=== PATIENT | female | born 1970 | race African-American/Black ===

== ENCOUNTER 2017-11-22 18:49 | Emergency (ER) | payer OTHER ==
[2017-11-22 18:59] VITALS: TEMP 98; BMI 25.0
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
[2017-11-22] MEDS ORDERED: NITROGLYCERIN 2% OINTMENT - 1GM PACKET TD ONE ×2 (20:23→20:29)
[2017-11-22] MEDS ORDERED: NITROGLYCERIN SUBLINGUAL 1/150 0.4 MG TAB SL ONE (20:23)
[2017-11-22 20:26] VITALS: PULSE 64
[2017-11-22] MEDS ORDERED: NITROGLYCERIN SUBLINGUAL 1/150 0.4 MG TAB ONE (20:30)
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
[2017-11-22 21:14] LABS: BASO % 1.2 % (0-2.0); EOS % 2.5 % (0-4.5); HEMATOCRIT 31.9 % (32.4-45.2); HEMOGLOBIN 10.7 GM/dL (10.7-15.3); LYMPH % 20.6 % (8-40); MCH 27.2 pg (25.7-33.7); MCHC 33.5 g/dl (32.0-36.0); MEAN CELL VOLUME 81.2 fl (80-96); MEAN PLT VOLUME 9.5 fl (7.5-11.1); MONO % 9.4 % (3.8-10.2); NEUT % 66.3 % (42.8-82.8); PLATELET COUNT 208 K/MM3 (134-434); RBC 3.93 M/mm3 (3.60-5.2); RDW 19.2 % (11.6-15.6); WHITE BLOOD COUNT 7.7 K/mm3 (4.0-10.0)
[2017-11-22 21:45] LABS: ANION GAP 4 (8-16); BLOOD UREA NITROGEN 11 mg/dL (7-18); CALCIUM 8.4 mg/dL (8.5-10.1); CHLORIDE 108 mmol/L (98-107); CO2 28 mmol/L (21-32); CREATININE 0.8 mg/dL (0.55-1.02); GLUCOSE,RANDOM 73 mg/dL (74-106); POTASSIUM 3.9 mmol/L (3.5-5.1); SGOT/AST 24 U/L (15-37); SGPT/ALT 28 U/L (12-78); SODIUM 140 mmol/L (136-145)
[2017-11-22 21:49] LABS: ALK PHOS 101 U/L (45-117); BILIRUBIN,TOTAL 0.3 mg/dL (0.2-1.0); TOT PROT 7.6 g/dl (6.4-8.2)
[2017-11-23 00:29] VITALS: BP 143/85
--- NOTE | 2017-11-23 14:34 | EKG ---
Test Reason : Blood Pressure : / mmHG Vent. Rate : 059 BPM Atrial Rate : 059 BPM P-R Int : 176 ms QRS Dur : 078 ms QT Int : 452 ms P-R-T Axes : 066 009 076 degrees QTc Int : 447 ms SINUS BRADYCARDIA OTHERWISE NORMAL ECG WHEN COMPARED WITH ECG OF 16-APR-2013 18:09, NO SIGNIFICANT CHANGE WAS FOUND Confirmed by MD Jimenez Daniel ([id number]) on 11/23/2017 2:34:05 PM Referred By: Confirmed By:Leonardo Jimenez MD
== END 2017-11-23 01:35 | disposition home or self-care (01) ==
LOC: JER 18:49
DX: G44.309 Post-traumatic headache, unspecified, not intractable (principal); G44.89 Other headache syndrome; I10 Essential (primary) hypertension; V43.62XA Car passenger injured in collision with other type car in traffic accident, initial encounter; Y92.414 Local residential or business street as the place of occurrence of the external cause; Y93.89 Activity, other specified; Y99.8 Other external cause status
CPT/HCPCS: 36415; 70450-TC; 71046-TC-FY; 72050-TC-FY; 80053; 82550; 82553; 84484; 85025; 93005; 93010; 99283-25

== ENCOUNTER 2018-01-13 15:41 | Emergency (ER) | payer OTHER ==
--- NOTE | 2018-01-13 16:13 | PDOC ---
Rapid Medical Evaluation Time Seen by Provider: 01/13/18 16:09 Medical Evaluation: Allergies Allergy/AdvReac Type Severity Reaction Status Date / Time No Known Allergies Allergy Verified 08/12/15 17:54 01/13/18 16:09 I have performed a brief in-person evaluation of this patient. The patient presents with a chief complaint of: L sided neck pain and NULL since today Pertinent physical exam findings: + tenderness in SCM muscle on the left side, FROM in neck I have ordered the following:none The patient will proceed to the fast track for further evaluation.
[2018-01-13 16:15] VITALS: PULSE 91; TEMP 98; BMI 24.8
[2018-01-13 18:08] VITALS: BP 150/90
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
== END 2018-01-13 18:15 | disposition home or self-care (01) ==
LOC: JER 15:41 → JERFT 15:41
DX: J00 Acute nasopharyngitis [common cold] (principal); B97.89 Other viral agents as the cause of diseases classified elsewhere; I10 Essential (primary) hypertension
CPT/HCPCS: 99281-25

== ENCOUNTER 2018-06-29 11:53 | Emergency (ER) | payer OTHER ==
[2018-06-29 12:13] VITALS: BP 184/89; PULSE 63; TEMP 99; BMI 24.3
--- NOTE | 2018-06-29 13:43 | PDOC ---
History of Present Illness - General Chief Complaint: Toothache Stated Complaint: TOOTH PAIN Time Seen by Provider: 06/29/18 13:33 History Source: Patient Exam Limitations: No Limitations - History of Present Illness Initial Comments: 06/29/18 13:52 Patient came for complaints of right upper tooth pain. States cracked tooth approximately 2 weeks ago and did not have pain until 3 days ago when had onset of throbbing which is progressively worsened. Has been using ibuprofen/Aleve and Tylenol with minimal resolved. Denies fever, denies swelling to face or inner gingival surface. But has facial pain which is radiating to her ear now Past History - Travel Traveled outside of the country in the last 30 days: No Close contact w/someone who was outside of country & ill: No - Past Medical History Allergies/Adverse Reactions: Allergies Allergy/AdvReac Type Severity Reaction Status Date / Time No Known Allergies Allergy Verified 06/29/18 12:12 Home Medications: Ambulatory Orders Enalapril Maleate [Vasotec -] 10 mg PO DAILY 11/22/17 Amoxicillin - [Amoxicillin 500mg Capsule -] 500 mg PO TID #21 capsule 06/29/18 Oxycodone HCl/Acetaminophen [Percocet 5-325 mg Tablet -] 1 - 2 tab PO Q4H PRN # 7 tablet MDD 4 06/29/18 COPD: No HTN: Yes - Suicide/Smoking/Psychosocial Hx Smoking Status: No Smoking History: Never smoked Have you smoked in the past 12 months: No Number of Cigarettes Smoked Daily: 0 Hx Alcohol Use: No Drug/Substance Use Hx: No Substance Use Type: None Review of Systems - Review of Systems Able to Perform ROS?: Yes Is the patient limited Hungarian proficient: Yes Constitutional: Yes: Symptoms Reported, See HPI, Malaise. No: Fever HEENTM: Yes: Symptoms Reported, See HPI, Mouth Pain, Dental Problems, Mouth Swelling Respiratory: Yes: See HPI. No: Symptoms reported, Cough Integumentary: No: Symptoms Reported Neurological: No: Symptoms reported All Other Systems: Reviewed and Negative *Physical Exam - Vital Signs Last Vital Signs Temp Pulse Resp BP Pulse Ox 99.0 F 63 16 184/89 H 98 06/29/18 12:10 06/29/18 12:10 06/29/18 12:10 06/29/18 12:10 12/09/18 12:10 - Physical Exam General Appearance: Yes: Nourished, Appropriately Dressed, Apparent Distress, Moderate Distress HEENT: positive: JHOANA, TMs Normal, Pharynx Normal, Other. negative: Normal ENT Inspection Neck: positive: Supple, Lymphadenopathy (R), Lymphadenopathy (L). negative: Tender Respiratory/Chest: positive: Lungs Clear, Normal Breath Sounds Cardiovascular: positive: Regular Rhythm Gastrointestinal/Abdominal: positive: Tender, Soft Musculoskeletal: positive: Normal Inspection Extremity: positive: Normal Capillary Refill, Normal Inspection Integumentary: positive: Normal Color, Dry, Warm, Pale Neurologic: positive: vascular ultrasound technician II-XII NML intact, Fully Oriented, Alert, Normal Mood/ Affect, Normal Response, Motor Strength 5/5 Moderate Sedation - Procedure Monitoring Vital Signs: Procedure Monitoring Vital Signs Temperature 99.0 F 06/29/18 12:10 Pulse Rate 63 06/29/18 12:10 Respiratory Rate 16 06/29/18 12:10 Blood Pressure 184/89 H 06/29/18 12:10 O2 Sat by Pulse Oximetry (%) 98 06/29/18 12:10 *DC/Admit/Observation/Transfer Diagnosis at time of Disposition: Tooth ache - Discharge Dispostion Disposition: HOME Condition at time of disposition: Stable Decision to Admit order: No - Prescriptions Prescriptions: Amoxicillin - [Amoxicillin 500mg Capsule -] 500 mg PO TID #21 capsule Oxycodone HCl/Acetaminophen [Percocet 5-325 mg Tablet -] 1 - 2 tab PO Q4H PRN # 7 tablet MDD 4 PRN Reason: Pain - Referrals Referrals: Leena Kumar MD [Primary Care Provider] - - Patient Instructions Printed Discharge Instructions: DI for Dental Pain Additional Instructions: Rest, drink lots of fluids: Teas, water, soups Saltwater gargles/ keep mouth clean and rinse after each meal May use wet teabag for pain relief to area Avoid hard chewing foods, stick to ice cream, Jell-O, yogurt etc. Tylenol or Motrin for fever and pain Complete all medication as prescribed Seek dental appointment as soon as possible for evaluation of dental injury/pain Followup with private physician in one to 2 days as needed Return to emergency department for worsened symptoms, fevers, swelling to face or worsened pain You may try : [facility] [address] [place] [address] [phone] - Post Discharge Activity Forms/Work/School Notes: Back to Work
== END 2018-06-29 13:58 | disposition home or self-care (01) ==
LOC: JERFT 11:53
DX: K08.89 Other specified disorders of teeth and supporting structures (principal)
CPT/HCPCS: 99281-25

== ENCOUNTER 2020-04-16 20:02 | Inpatient (IN) | payer OTHER ==
[2020-04-16 20:08] VITALS: BMI 24.7
--- OUTSIDE RECORDS SUMMARY | 2020-04-16 20:21 | XMS ---
:1970 Author Organization [facility] Support Name Relationship Address Phone UE Unavailable Unavailable Unavailable [facility] Unavailable [facility] [place] [phone] [place] [address] [facility] [place] [address] [place] [address] Re-disclosure Warning The records that you are about to access may contain information from federally- assisted alcohol or drug abuse programs. If such information is present, then the following federally mandated warning applies: This information has been disclosed to you from records protected by federal confidentiality rules (42 CFR part 2). The federal rules prohibit you from making any further disclosure of this information unless further disclosure is expressly permitted by the written consent of the person to whom it pertains or as otherwise permitted by 42 CFR part 2. A general authorization for the release of medical or other information is NOT sufficient for this purpose. The Federal rules restrict any use of the information to criminally investigate or prosecute any alcohol or drug abuse patient.The records that you are about to access may contain highly sensitive health information, the redisclosure of which is protected by Article 27-F of the [facility] Public Health law. If you continue you may haveaccess to information: Regarding HIV / AIDS; Provided by facilities licensed or operated by the [facility] Office of Mental Health; or Provided by the [facility] Office for People With Developmental Disabilities. If such information is present, then the following [facility] mandated warning applies: This information has been disclosed to you from confidential records which are protected by state law. State law prohibits you from making any further disclosure of this information without the specific written consent of the person to whom it pertains, or as otherwise permitted by law. Any unauthorized further disclosure in violation of state law may result in a fine or care home sentence or both. A general authorization for the release of medical or other information is NOT sufficient authorization for further disclosure. Insurance Providers Payer name Policy type Policy ID Covered Covered libertarian's Policy P cris / Coverage libertarian ID relationship to Red Inf ormation type red [facility] MEDICAID [id number] O
--- NOTE | 2020-04-16 20:42 | PDOC ---
History of Present Illness - General Chief Complaint: Edema Stated Complaint: BILATERAL SWELLING- FEET AND PAIN Time Seen by Provider: 04/16/20 20:42 Past History - Medical History Allergies/Adverse Reactions: Allergies Allergy/AdvReac Type Severity Reaction Status Date / Time No Known Allergies Allergy Verified 04/18/20 12:10 Home Medications: Ambulatory Orders Enalapril/Hydrochlorothiazide [Vaseretic 10-25 mg Tablet] 1 each PO DAILY 5 Days #5 tablet 04/16/20 Acetaminophen [Tylenol .Regular Strength -] 650 mg PO Q4H PRN tablet 04/18/20 Enalapril Maleate [Vasotec -] 20 mg PO DAILY 30 Days #30 tablet 04/18/20 Hydrochlorothiazide [Hctz -] 25 mg PO DAILY 30 Days #30 tablet 04/18/20 Nifedipine ER [Procardia XL -] 30 mg PO DAILY 30 Days #30 tab.er.24 04/18/20 COPD: No HTN: Yes - Reproductive History Is Patient Now?: No - Psycho-Social/Smoking History Smoking Status: No Smoking History: Never smoked Have you smoked in the past 12 months: No Number of Cigarettes Smoked Daily: 0 - Substance Abuse Hx (Audit-C & DAST Scrn) How often the patient has a drink containing alcohol: Never Score: In Men: 4 or > Positive; In Women: 3 or > Positive: 0 Screen Result (Pos requires Nsg. Audit-10AR): Negative In the last yr the pt used illegal drug/Rx for NonMed reason: No Score: Yes response is considered Positive: 0 Screen Result (Positive result requires Nsg. DAST-10): Negative *Physical Exam - Vital Signs Last Vital Signs Temp Pulse Resp BP Pulse Ox 98.3 F 81 18 213/84 H 99 04/16/20 20:05 04/16/20 20:05 04/16/20 20:05 04/16/20 20:05 04/16/20 20:05 ED Treatment Course - LABORATORY CBC & Chemistry Diagram: 04/18/20 05:50 04/18/20 05:50 Medical Decision Making - Medical Decision Making 04/16/20 21:12 HPI: 49yo F HTN, anemia 2/2 menses (noncompliant with iron due to AE), and partial thyroidectomy presents from home c/o BLE swelling x4 days. Pt takes 20 enalipril daily, unknown HCTZ daily - accidentally threw out 2-3 weeks ago so hasn't taken. Endorses BLE swelling since Saturday, similar to prior episodes when was poorly compliant with meds, worse when drives for 1-2 hours. Endorses mild SOB when walks up stairs x3 days, which pt has experienced intermittently x years. Denies chest pain, lightheadedness, diaphoresis. LMP ended yesterday. Denies N/T, weakness, unilateral swelling, hx DVT/PE, OCP or hormone use, recent surgery, recent travel or long road/plane rides, malignancy, hemoptysis, cough, chest pain, N/V, abdominal pain, F/C. ROS: Constitutional: Negative for chills, fever, fatigue, diaphoresis. HENT: Negative for sore throat, rhinorrhea, congestion. Eyes: Negative for visual disturbance. Respiratory: Positive for MUÑIZ. Negative for cough, and wheezing. Cardiovascular: Positive for BLE swelling. Negative for chest pain, palpitations . Gastrointestinal: Negative for abdominal pain, blood in stool, constipation, diarrhea, nausea, and vomiting. Genitourinary: Negative for dysuria, flank pain, and hematuria. Musculoskeletal: Negative for myalgias, back pain, and neck pain. Skin: Negative for rash. Neurological: Negative for light-headedness, dizziness, vertigo, syncope, weakness, numbness and headaches. Psychiatric/Behavioral: Negative for behavioral problems and confusion. PE: Gen: Alert, NAD, comfortable-appearing. HEENT: PERRL, EOMI, MMM, NCAT. No conjunctival pallor. Sclera are non-icteric. Oropharynx is clear. CV: Regular rate and rhythm. No murmurs, rubs, or gallops. PULM: No resp distress. CTAB, no wheezes, rales, or rhonchi. ABD: soft, NT/ND, no rebound tenderness or guarding, no CVA tenderness. BACK: No TTP of c/t/l-spine. No step-offs or deformities. MSK: No bony deformities. 2+ pulses in all extremities. NEURO: AAOx3. PERRL. CN 2-12 intact. 5/5 strength in all extremities. Sensation to light touch intact in all extremities. No abnormal nystagmus. Normal gait. EXTREMITIES: No cyanosis. No clubbing. 1+ edema BLEs. No calf tenderness. PSYCH: Normal mood and thought pattern. SKIN: Warm and dry. Normal capillary refill. No rashes. No jaundice. MDM: 49yo F HTN, anemia 2/2 menses (noncompliant with iron due to AE), and partial thyroidectomy presents from home with BLE swelling x4 days, noncompliant with home meds x2-3 weeks, and MUÑIZ x3 days (intermittent x years). Hypertensive, otherwise hemodynamically stable, afebrile, neurologically intact. Ddx: dependent edema, CHF, HTN emergency, DVT, ACS/OR, arrhythmia, thyroid abnormality, infection, metabolic derangement, anemia -Home meds -EKG: changes from prior -CXR: no acute pathology -CBC,CMP,BNP,Trop,TSH,UA -Duplex BLEs -Admit for EKG changes Labs reviewed. Notable for BNP 675 and Hb 6.3 Anemic Hb 6.3 (baseline 7-8), likely 2/2 menses which just ended yesterday. Mild SOB with exertion but otherwise asymptomatic. -iron studies -repeat H/H -observe Discharge - Discharge Information Problems reviewed: Yes Clinical Impression/Diagnosis: Leg swelling, Anemia, Hypertension, Acute electrocardiogram changes, Elevated brain natriuretic peptide (BNP) level Condition: Stable Disposition: HOME - Admission Yes - Additional Discharge Information - Follow up/Referral - Patient Discharge Instructions - Post Discharge Activity
--- NOTE | 2020-04-16 20:47 | PDOC ---
Attending Attestation - Resident Resident Name: Debbie Gallego - ED Attending Attestation I have performed the following: I have examined & evaluated the patient, The case was reviewed & discussed with the resident, I agree w/resident's findings & plan - HPI HPI: 04/16/20 22:12 Pt hasn't taken her meds in several weeks. She was visiting [place] and she thinks someone in the hotel tossed her HTN meds. She never refilled them,. She eats a lot of junk food and she works nights and has a bad diet and stress. BP was 220 in the ER on arrival. Pt has pitting edema bilat. She has had this in the past only when she goes on ling drives. This has been going on for a couple days despite no long drives. - Physicial Exam PE: 04/16/20 22:21 Heart RRR Lungs CTAB abd soft NT ND pt looks younger than stated age Pt has pitting edema right lef >> left leg and 2+ pitting up to knees - Medical Decision Making 04/16/20 22:16 New EKG changes; lateral T waves flipped. 04/16/20 22:56 Hb is 6.3 normal is 7-8 for patient; pt's Hb is 10 when she is compliant with her iron supplementation. 04/17/20 01:00 Patient Name: LEN HERNANDEZ THIS IS A PRELIMINARY REPORT DATE OF SERVICE: 2020-04-16 23:50:10 IMAGES: 42 EXAM: DUPLEX VASCULAR US-2 LEGS HISTORY: Bilateral leg swelling COMPARISON: None. FINDINGS: There is no DVT in the right or left lower extremity. IMPRESSION: No DVT 04/17/20 01:00 trop normal; BNP slight elevation. BUN/Cr normal 04/17/20 01:01 PT ADMITTED TO MED SURG Discharge - Discharge Information Problems reviewed: Yes Clinical Impression/Diagnosis: Leg swelling, Anemia, Hypertension, Acute electrocardiogram changes, Elevated brain natriuretic peptide (BNP) level Condition: Stable - Additional Discharge Information - Follow up/Referral - Patient Discharge Instructions - Post Discharge Activity
[2020-04-16] MEDS ORDERED: ENALAPRIL MALEATE 10 MG TABLET PO ONE (21:33)
[2020-04-16] MEDS ORDERED: HYDROCHLOROTHIAZIDE 25 MG TABLET (FP) PO ONE (21:33)
[2020-04-16] MEDS ORDERED: ENALAPRIL MALEATE 5 MG TABLET ONE (21:48)
[2020-04-16] MEDS ORDERED: HYDROCHLOROTHIAZIDE 25 MG TABLET (FP) ONE (21:48)
[2020-04-16] MEDS ORDERED: NITROGLYCERIN SUBLINGUAL 1/150 0.4 MG TAB SL ONE (22:00)
[2020-04-16] MEDS ORDERED: ACETAMINOPHEN 1000 MG/100 ML VIAL (NON FORMULARY) IVPB ONE (22:15)
[2020-04-16 22:18] LABS: BASO % 2.5 % (0-2.0); EOS % 3.3 % (0-4.5); HEMATOCRIT 20.2 % (32.4-45.2); LYMPH % 31.4 % (8-40); MCH 20.9 pg (25.7-33.7); MEAN CELL VOLUME 67.7 fl (80-96); MEAN PLT VOLUME 8.9 fl (7.5-11.1); MONO % 9.9 % (3.8-10.2); NEUT % 52.9 % (42.8-82.8); PLATELET COUNT 310 K/MM3 (134-434); RBC 2.99 M/mm3 (3.60-5.2); RDW 23.4 % (11.6-15.6); WHITE BLOOD COUNT 6.2 K/mm3 (4.0-10.0)
[2020-04-16] MEDS ORDERED: ACETAMINOPHEN INJECTION 100 ML IVPB ONE (22:26)
[2020-04-16 22:28] LABS: HEMOGLOBIN 6.3 GM/dL (10.7-15.3)
[2020-04-16 22:55] LABS: BASO % 3.8 % (0-2.0); EOS % 2.6 % (0-4.5); HEMATOCRIT 20.6 % (32.4-45.2); LYMPH % 31.5 % (8-40); MCHC 30.6 g/dl (32.0-36.0); MEAN CELL VOLUME 68.6 fl (80-96); MEAN PLT VOLUME 9.6 fl (7.5-11.1); MONO % 9.1 % (3.8-10.2); PH,URINE 7.5 (5.0-8.0); PLATELET COUNT 295 K/MM3 (134-434); RDW 22.9 % (11.6-15.6); URINE APPEARANCE CLEAR; URINE BILIRUBIN NEGATIVE (NEGATIVE); URINE COLOR YELLOW; URINE GLUCOSE (UA) NEGATIVE (NEGATIVE); URINE KETONE NEGATIVE (NEGATIVE); URINE LEUK ESTERASE NEGATIVE (NEGATIVE); URINE NITRITE NEGATIVE (NEGATIVE); URINE PROTEIN NEGATIVE (NEGATIVE); URINE UROBILINOGEN 0.2 mg/dL (0.2-1.0); WHITE BLOOD COUNT 5.5 K/mm3 (4.0-10.0)
[2020-04-16 23:02] LABS: HEMOGLOBIN 6.3 GM/dL (10.7-15.3)
[2020-04-16 23:03] LABS: ALBUMIN 3.5 g/dl (3.4-5.0); ALK PHOS 143 U/L (45-117); ANION GAP 4 MMOL/L (8-16); BILIRUBIN,TOTAL 0.2 mg/dL (0.2-1); BLOOD UREA NITROGEN 15.2 mg/dL (7-18); CALCIUM 8.5 mg/dL (8.5-10.1); CHLORIDE 108 mmol/L (98-107); CO2 28 mmol/L (21-32); CREATININE 0.8 mg/dL (0.55-1.3); GLUCOSE,RANDOM 96 mg/dL (74-106); N-TERMINAL BNP 674.9 pg/ml (5-125); POTASSIUM 3.8 mmol/L (3.5-5.1); SGOT/AST 26 U/L (15-37); SGPT/ALT 26 U/L (13-61); SODIUM 139 mmol/L (136-145); TOT PROT 7.3 g/dl (6.4-8.2)
[2020-04-17 00:02] LABS: INR 1.08 (0.83-1.09); PROTHROMBIN TIME (PATIENT) 12.8 SEC (9.7-13.0)
[2020-04-17 00:05] LABS: ACTIVATED PTT 30.2 SECONDS (25.2-36.5)
--- NOTE | 2020-04-17 00:08 | HP ---
Admitting History and Physical - Primary Care Physician PCP: Leena Kumar - Admission Chief Complaint: Bilateral Lower Extremity Edema History of Present Illness: This is a 49 y/o female with a PMHx of HTN (non-compliant Enalapril, HCTZ), Anemia (non-compliant with iron supplements), Goiter s/p partial thyroidectomy. Who presents to the ED for bilateral lower extremity swelling x4 days. Patient also reports SOB on exertion x3 days and heavy menses lasting 7 days. Patient reports not taking her antihypertensive meds x 3 weeks due to accidentally throwing them out. Patient reports that the bilateral LE swelling is similar to prior episodes when she was poorly compliant with her medications or when when driving for 1-2 hours. she reports her menstrual cycle ended yesterday. Patient denies fever, chills, cough, NULL, blurred vision, CP, palpitations, AP, N/V/D, melena, hematochezia, hematuria, dysuria. Patient denies recent sick contacts or travel. History Source: Patient Limitations to Obtaining History: No Limitations - Past Medical History Cardiovascular: Yes: HTN Gastrointestinal: Yes: Constipation ...LMP: 04/13/20 ...: No Heme/Onc: Yes: Anemia - Past Surgical History Past Surgical History: Yes: Additional Past Surgical History: Partial Thyroidectomy - Smoking History Smoking history: Never smoked Have you smoked in the past 12 months: No Aproximately how many cigarettes per day: 0 - Alcohol/Substance Use Hx Alcohol Use: No History of Substance Use: reports: None - Social History Usual Living Arrangement: Yes: Other (family) ADL: Independent Occupation: employed part-time History of Recent Travel: No Home Medications - Allergies Allergies/Adverse Reactions: Allergies Allergy/AdvReac Type Severity Reaction Status Date / Time No Known Allergies Allergy Verified 04/16/20 20:08 - Home Medications Home Medications: Ambulatory Orders Enalapril/Hydrochlorothiazide [Vaseretic 10-25 mg Tablet] 1 each PO DAILY 5 Days #5 tablet 04/16/20 Family Medical History Family History: As Documented Family Hx Cancer: Grandfather (maternal) Family Hx Congestive Heart Failure: Grandmother (maternal), Mother Family Hx Diabetes: Grandmother (maternal), Grandfather (paternal) Other Family History: Cancer- Maternal Great Aunt Review of Systems - Review of Systems Constitutional: reports: No Symptoms Eyes: reports: No Symptoms HENT: reports: No Symptoms Neck: reports: No Symptoms Cardiovascular: reports: Edema, Shortness of Breath Respiratory: reports: SOB on Exertion Gastrointestinal: reports: No Symptoms Genitourinary: reports: No Symptoms Breasts: reports: No Symptoms Reported Musculoskeletal: reports: No Symptoms Integumentary: reports: No Symptoms Neurological: reports: No Symptoms Endocrine: reports: No Symptoms Hematology/Lymphatic: reports: No Symptoms Psychiatric: reports: No Symptoms Pain Intensity: 0 Physical Examination Vital Signs: Vital Signs Temperature 98.3 F 04/16/20 20:05 Pulse Rate 60 04/16/20 23:10 Respiratory Rate 18 04/16/20 23:10 Blood Pressure 196/97 H 04/16/20 23:10 O2 Sat by Pulse Oximetry (%) 100 04/16/20 23:10 Constitutional: Yes: No Distress, Calm, Thin Eyes: Yes: Conjunctiva Clear (pale), EOM Intact, PERRL HENT: Yes: Atraumatic, Normocephalic Neck: Yes: Supple, Trachea Midline Cardiovascular: Yes: Regular Rate and Rhythm, S1, S2 Respiratory: Yes: WNL, Regular, CTA Bilaterally Gastrointestinal: Yes: Normal Bowel Sounds, Soft ...Rectal Exam: Yes: Deferred Renal/: Yes: WNL Breast(s): Yes: WNL Musculoskeletal: Yes: WNL Extremities: Yes: WNL Edema: Yes Edema: LLE: 2+, RLE: 1+ Peripheral Pulses WNL: Yes Integumentary: Yes: WNL Neurological: Yes: WNL, Alert, Oriented, Cran Nerves II-XII Intact. No: Unsteady Gait ...Motor Strength: WNL Psychiatric: Yes: WNL, Alert, Oriented Labs: CBC, BMP 04/16/20 10:45 04/16/20 10:06 Laboratory Results - last 24 hr 04/16/20 04/16/20 04/16/20 10:06 10:06 10:06 WBC 6.2 RBC 2.99 L Hgb 6.3 L* Hct 20.2 L MCV 67.7 L MCH 20.9 L MCHC 31.0 L RDW 23.4 H Plt Count 310 MPV 8.9 D Absolute Neuts (auto) 3.3 Neutrophils % 52.9 Lymphocytes % 31.4 Monocytes % 9.9 Eosinophils % 3.3 Basophils % 2.5 H Nucleated RBC % 0 Hypochromia 2+ Microcytosis 1+ PT with INR INR PTT (Actin FS) Sodium 139 Potassium 3.8 Chloride 108 H Carbon Dioxide 28 Anion Gap 4 L BUN 15.2 Creatinine 0.8 Est GFR (CKD-EPI)AfAm 99.63 Est GFR (CKD-EPI)NonAf 85.96 Random Glucose 96 Calcium 8.5 Iron 30 L TIBC 398 Iron Saturation 7 L Unsaturated IBC 368 H Ferritin 4.7 L Total Bilirubin 0.2 AST 26 ALT 26 Alkaline Phosphatase 143 H Troponin I < 0.02 B-Natriuretic Peptide 674.9 H Total Protein 7.3 Albumin 3.5 TSH 2.22 Urine Color Urine Appearance Urine pH Ur Specific [place] Urine Protein Urine Glucose (UA) Urine Ketones Urine Blood Urine Nitrite Urine Bilirubin Urine Urobilinogen Ur Leukocyte Esterase Blood Type Antibody Screen Crossmatch 04/16/20 04/16/20 04/16/20 10:45 10:45 10:45 WBC 5.5 RBC 3.00 L Hgb 6.3 L* Hct 20.6 L MCV 68.6 L MCH 21.0 L MCHC 30.6 L RDW 22.9 H Plt Count 295 MPV 9.6 Absolute Neuts (auto) 2.9 Neutrophils % 53.0 Lymphocytes % 31.5 Monocytes % 9.1 Eosinophils % 2.6 Basophils % 3.8 H Nucleated RBC % 0 Hypochromia Microcytosis PT with INR INR PTT (Actin FS) Sodium Potassium Chloride Carbon Dioxide Anion Gap BUN Creatinine Est GFR (CKD-EPI)AfAm Est GFR (CKD-EPI)NonAf Random Glucose Calcium Iron TIBC Iron Saturation Unsaturated IBC Ferritin Total Bilirubin AST ALT Alkaline Phosphatase Troponin I B-Natriuretic Peptide Total Protein Albumin TSH Urine Color Yellow Urine Appearance Clear Urine pH 7.5 D Ur Specific [place] 1.007 L Urine Protein Negative Urine Glucose (UA) Negative Urine Ketones Negative Urine Blood Negative Urine Nitrite Negative Urine Bilirubin Negative Urine Urobilinogen 0.2 Ur Leukocyte Esterase Negative Blood Type O POSITIVE Antibody Screen Negative Crossmatch See Detail 04/16/20 23:08 WBC RBC Hgb Hct MCV MCH MCHC RDW Plt Count MPV Absolute Neuts (auto) Neutrophils % Lymphocytes % Monocytes % Eosinophils % Basophils % Nucleated RBC % Hypochromia Microcytosis PT with INR 12.80 INR 1.08 PTT (Actin FS) 30.2 Sodium Potassium Chloride Carbon Dioxide Anion Gap BUN Creatinine Est GFR (CKD-EPI)AfAm Est GFR (CKD-EPI)NonAf Random Glucose Calcium Iron TIBC Iron Saturation Unsaturated IBC Ferritin Total Bilirubin AST ALT Alkaline Phosphatase Troponin I B-Natriuretic Peptide Total Protein Albumin TSH Urine Color Urine Appearance Urine pH Ur Specific [place] Urine Protein Urine Glucose (UA) Urine Ketones Urine Blood Urine Nitrite Urine Bilirubin Urine Urobilinogen Ur Leukocyte Esterase Blood Type Antibody Screen Crossmatch Intake & Output 04/14/20 04/15/20 04/16/20 04/17/20 23:59 23:59 23:59 23:59 Intake Total 100 Balance 100 Weight 69.4 kg Radiology Reports: THIS IS A PRELIMINARY REPORT DATE OF SERVICE: 2020-04-16 23:50:10 IMAGES: 42 EXAM: DUPLEX VASCULAR US-2 LEGS HISTORY: Bilateral leg swelling COMPARISON: None. FINDINGS: There is no DVT in the right or left lower extremity. IMPRESSION: No DVT 04/17/20 01:00 Imaging - Results Chest X-ray: Image Reviewed Ultrasound: Report Reviewed, Image Reviewed EKG: Image Reviewed Problem List - Problems (1) Hypertensive urgency Assessment/Plan: Likely secondary to non-compliance Vasotec, HCTZ, Nitro Paste given in ED Will resume Vasotec, HCTZ Cardiac monitoring Serial Enzymes EKG reviewed- TWI noted Appreciate Cardiology consult Renal US r/o ATIF Monitor CBC, CMP Code(s): I16.0 - HYPERTENSIVE URGENCY (2) Acute electrocardiogram changes Assessment/Plan: EKG - NSR, TWI change compared to prior study Troponin neg, continue to trend Continue cardiac monitoring Appreciate Cardiology consult Chest Xray image reviewed- no pleural effusion, no infiltrate Monitor CMP Code(s): R94.31 - ABNORMAL ELECTROCARDIOGRAM [ECG] [EKG] (3) Symptomatic anemia Assessment/Plan: Likely secondary to non-compliance Hgb 6.3 Hx Menorrhagia PRBCs ordered FE, TIBC, Ferritin-pending Repeat CBC in am Cardiac monitoring O2 Consider Hematology consult Resume Iron supplements Stool Occult Code(s): D64.9 - ANEMIA, UNSPECIFIED (4) Leg swelling Assessment/Plan: Likely secondary to Uncontrolled HTN vs DVT vs CHF Wells Score 1, moderate risk Duplex b/l LE- neg DVT BNP 674 HCTZ given in ED, will continue Strict INOs Daily weight Chest Xray image, no effusion, no infiltrate Elevate extremities Appreciate Cardiology consult Monitor CMP Code(s): M79.89 - OTHER SPECIFIED SOFT TISSUE DISORDERS (5) Encounter for screening laboratory testing for COVID-19 virus Assessment/Plan: Low Risk COVID PCR-pending Isolation Precautions Code(s): Z11.59 - ENCOUNTER FOR SCREENING FOR OTHER VIRAL DISEASES Assessment/Plan This is a 49 y/o female with a PMHx of HTN (non-compliant with Enalapril, HCTZ), Anemia (noncompliant with iron supplements), Goiter s/p partial thyroidectomy. Admitted to Telemetry for Hypertensive Urgency, EKG Changes, Symptomatic Anemia for further evaluation of their emergent condition. Plan: See Problem List FEN PO fluids as tolerated Replete lytes prn Low Na Diet DVT ppx OOB SCDs Hold AC secondary to Anemia Code Status: Full Code Dispo: Requires Inpatient Care Visit type - Emergency Visit Emergency Visit: Yes ED Registration Date: 04/16/20 Care time: The patient presented to the Emergency Department on the above date and was hospitalized for further evaluation of their emergent condition. - New Patient This patient is new to me today: Yes Date on this admission: 04/17/20 - Critical Care Critical Care patient: No
--- OUTSIDE RECORDS SUMMARY | 2020-04-17 00:21 | XMS ---
:1970 Author Organization [facility] Support Name Relationship Address Phone UE, UNEMPLOYED Unavailable Unavailable Unavailable UE Unavailable Unavailable Unavailable [facility] Unavailable [place] [address] [facility] [place] [address] [place] [address] Re-disclosure Warning The records that you are [...] is protected by Article 27-F of the [facility] Public Health law. If you continue you may haveaccess to information: Regarding HIV / AIDS; Provided by facilities licensed or operated by the [facility] Office of Mental Health; or Provided by the [facility] Office for People With Developmental Disabilities. If such information is present, then the following [facility] mandated warning applies: This information has been [...] law may result in a fine or fci sentence or both. A general authorization for the release of medical or other information is NOT sufficient authorization for further disclosure. Insurance Providers Payer name Policy type Policy ID Covered Covered republican's Policy P cris / Coverage republican ID relationship to Red Inf ormation type red [facility] MEDICAID [id number] O
--- NOTE | 2020-04-17 07:04 | CON.CARD ---
Consult Consult Specialty:: Cardiology Referred by:: Dr. Schilling Reason for Consultation:: Hypertensive urgency, abnl ECG - History of Present Illness Chief Complaint: LE edema History of Present Illness: This is a 49 y/o female with a PMHx of HTN (non-compliant Enalapril, HCTZ), Anemia (non-compliant with iron supplements), Goiter s/p partial thyroidectomy. Who presents to the ED for bilateral lower extremity swelling x4 days. Patient also reports SOB on exertion x3 days and heavy menses lasting 7 days. Patient reports not taking her antihypertensive meds x 3 weeks due to accidentally throwing them out. She reports her menstrual cycle ended yesterday. Patient denies fever, chills, cough, NULL, blurred vision, CP, palpitations, AP, N/V/D, melena, hematochezia, hematuria, dysuria. Patient denies recent sick contacts or travel. BNP initiall >200/100; received Enalapril and HCTZ in ER. We are asked to see for hypertension. She is receiving PRBCs. History Source: Patient Limitations to Obtaining History: No Limitations - Past Medical History Cardiovascular: Yes: HTN Gastrointestinal: Yes: Constipation ...LMP: 04/13/20 ...: No Heme/Onc: Yes: Anemia - Past Surgical History Past Surgical History: Yes: Additional Past Surgical History: - History Source History Provided By: Patient, Medical Record - Past Medical History CHROMOSOMAL DISORDERS COUNSELOR: No: Alzheimer's, CVA, Dementia, Migraine, Multiple Sclerosis, Peripheral Neuropathy, Parkinson's, Seizure, Syncope, TIA, Vertigo, Other Cardio/Vascular: Yes: HTN Pulmonary: No: Asthma, Bronchitis, Cancer, COPD, O2 Dependent, Pneumonia, Previously Intubated, Pulmonary Embolus, Pulmonary Fibrosis, Sleep Apnea, Other Gastrointestinal: Yes: Constipation Hepatobiliary: No: Cirrhosis, Cholelithiasis, Cholecystitis, Choledocholithiasis, Hepatitis A, Hepatitis B, Hepatitis C, Other Reproductive: Yes: Fibroids ...LMP: 04/13/20 ...: No Heme/Onc: No: Anemia, B12 Deficiency, Bleeding Disorder, Cancer, Current Chemotherapy, Current Radiation Therapy, Hemochromatosis, Hypercoaguable State, Myeloproliferative Synd, Sickle Cell Disease, Sickle Cell Trait, Thrombocytopenia, Other Infectious Disease: No: AIDS, C-Diff, Herpes Zoster, HIV, MRSA, STD's, Tuberculosis, VREF, Other Psych: No: Addictions, Anxiety, Bipolar, Depression, Panic, Psychosis, Schizophrenia, Other Musculoskeletal: No: Bursitis, Chronic low back pain, Hemiparesis, Hemiplegia, Osteoarthritis, Paraplegia, Other Rheumatology: No: Fibromyalgia, Gout, Lupus, Rheumatoid Arthritis, Sarcoidosis, Vasculitis, Other ENT: No: Allergic Rhinitis, Sinusitis, Other Endocrine: No: Matt's Disease, Mun[place]'s Disease, Diabetes Insipidus, Diabetes Mellitus, Hyperparathyroidism, Hyperthyroidism, Hypothyroidism, Osteopenia, SIADH, Other Dermatology: No: Basal Cell, Cellulitis, Eczema, Melanoma, Psoriasis, Squamous Cell, Other - Past Surgical History Past Surgical History: Yes: - Alcohol/Substance Use Hx Alcohol Use: No History of Substance Use: reports: None - Smoking History Smoking history: Never smoked Have you smoked in the past 12 months: No Aproximately how many cigarettes per day: 0 - Social History ADL: Independent Occupation: employed part-time History of Recent Travel: No Home Medications - Allergies Allergies/Adverse Reactions: Allergies Allergy/AdvReac Type Severity Reaction Status Date / Time No Known Allergies Allergy Verified 04/16/20 20:08 - Home Medications Home Medications: Ambulatory Orders Enalapril/Hydrochlorothiazide [Vaseretic 10-25 mg Tablet] 1 each PO DAILY 5 Days #5 tablet 04/16/20 Family Medical History Family Hx Cancer: Grandfather (maternal) Family Hx Congestive Heart Failure: Grandmother (maternal), Mother Family Hx Diabetes: Grandmother (maternal), Grandfather (paternal) Other Family History: Cancer- Maternal Great Aunt Review of Systems Findings/Remarks: see hpi - Review of Systems Constitutional: reports: Weakness Eyes: reports: No Symptoms HENT: reports: No Symptoms Neck: reports: No Symptoms Cardiovascular: reports: Edema, Shortness of Breath Respiratory: reports: Exercise Intolerance Gastrointestinal: reports: No Symptoms Genitourinary: reports: Menses (heavy) Breasts: denies: No Symptoms Reported, See HPI, Breast Implants, Discharge from Nipple, Lumps, Pain, Skin Changes, Other Musculoskeletal: denies: No Symptoms, Back Pain, Crepitus, Decreased ROM, Extremity Pain, Joint Pain, Joint Swelling, Muscle Pain, Muscle Cramps, Muscle Weakness, Other Neurological: denies: No Symptoms, Change in LOC, Change in Speech, Confusion, Dizziness, Headache, Incoordination, Numbness, Parasthesia, Pre-Existing Deficit, Seizure, Syncope, Tremors, Unsteady Gait, Weakness, Other Hematology/Lymphatic: denies: No Symptoms, Easily Bruised, Excessive Bleeding, Swollen Glands, Other Psychiatric: denies: No Symptoms, Altered Sleep Pattern, Anxiety, Depression, Hallucinations, Panic, Paranoia, Suicidal, Other - Risk Factors Known Risk Factors: Yes: Hypertension Vital Signs: Vital Signs Temperature 98.2 F 04/17/20 06:49 Pulse Rate 57 L 04/17/20 06:49 Respiratory Rate 16 04/17/20 06:49 Blood Pressure 169/85 04/17/20 06:49 O2 Sat by Pulse Oximetry (%) 100 04/17/20 06:49 Constitutional: Yes: No Distress, Calm Eyes: Yes: Conjunctiva Clear, EOM Intact HENT: Yes: Atraumatic, Normocephalic Neck: Yes: Supple, Trachea Midline Respiratory: Yes: CTA Bilaterally (no wheezing or rales.) Gastrointestinal: Yes: Soft (nt) Cardiovascular: Yes: Regular Rate and Rhythm JVD: No Carotid Bruit: No PMI: Non-Displaced Heart Sounds: Yes: S1, S2 Murmur: Yes: Systolic Murmur Edema: Yes Edema: LLE: 1+, RLE: 1+ Peripheral Pulses WNL: Yes Neurological: Yes: Alert, Oriented ...Motor Strength: WNL Psychiatric: Yes: WNL - Other Data Labs, Other Data: CBC, BMP 04/16/20 10:45 04/16/20 10:06 INR, PTT INR 1.08 (0.83-1.09) 04/16/20 23:08 Troponin, BNP 04/16/20 10:06 Troponin I < 0.02 B-Natriuretic Peptide 674.9 H Troponin, BNP 04/16/20 10:06 Troponin I < 0.02 B-Natriuretic Peptide 674.9 H Laboratory Tests 04/16/20 04/16/20 04/16/20 10:06 10:06 10:06 WBC 6.2 RBC 2.99 L Plt Count 310 Neutrophils % 52.9 PT with INR INR PTT (Actin FS) Sodium 139 Potassium 3.8 Creatinine 0.8 TIBC 398 Iron Saturation 7 L Unsaturated IBC 368 H Ferritin 4.7 L Troponin I < 0.02 B-Natriuretic Peptide 674.9 H Albumin 3.5 04/16/20 23:08 WBC RBC Plt Count Neutrophils % PT with INR 12.80 INR 1.08 PTT (Actin FS) 30.2 Sodium Potassium Creatinine TIBC Iron Saturation Unsaturated IBC Ferritin Troponin I B-Natriuretic Peptide Albumin Laboratory Tests 04/16/20 10:06 Alkaline Phosphatase 143 H Troponin I < 0.02 NSR with nonspecific T wave inversions I, AvL, V6 new from 11/2017 Mildly prolonged QT 470s Echo: Pending Imaging - Results Chest X-ray: Image Reviewed EKG: Image Reviewed Assessment/Plan IMP: Hypertensive urgency Anemia Murmur Edema Abnl ECG: nonspecific T wave/LAE/Mild prolonged QT REC: 1. 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 Anemia: chronic, but worsened -seems most likely due to chronic heavy menses possibly secondary to fibroids -As per PMD 3. Murmur: -May be flow murmur due to marked anemia -Echo 4. LE edema: -F/u official LE duplex, prelim negative -Probably component of chronic diastolic CHF due to hypertensive heart disease (mildly elevated BNP) -Edema should improve with resumption of HCTZ, does not require loop diuretic at this time 5. Abnl ECG: -LAE secondary chronic HTN, for Echo -Nonspecific T wave changes in setting marked anemia/uncontrolled HTN, initial troponin negative; do not suspect ACS -Obtain second set cardiac enzymes and if negative, can d/c tele -Mild QTc prolongation: replete K+, check Mg2+ -No offending meds on review of med list -Will monitor with serial ECGs
[2020-04-17] MEDS ORDERED: ENALAPRIL MALEATE 5 MG TABLET ONE (07:12)
[2020-04-17] MEDS ORDERED: HYDROCHLOROTHIAZIDE 25 MG TABLET (FP) ONE (07:13)
[2020-04-17] MEDS: ENALAPRIL MALEATE 10 MG TABLET PO SCH (09:44)
[2020-04-17] MEDS: HYDROCHLOROTHIAZIDE 25 MG TABLET (FP) PO SCH (09:44)
[2020-04-17] MEDS ORDERED: ACETAMINOPHEN 500 MG TABLET (FP) PO ONE (11:40)
[2020-04-17] MEDS ORDERED: ACETAMINOPHEN 500 MG TABLET (FP) ONE (11:41)
[2020-04-17 12:16] LABS: BASO % 1.9 % (0-2.0); EOS % 2.6 % (0-4.5); HEMATOCRIT 32.1 % (32.4-45.2); HEMOGLOBIN 10.1 GM/dL (10.7-15.3); LYMPH % 21.5 % (8-40); MCH 22.8 pg (25.7-33.7); MCHC 31.5 g/dl (32.0-36.0); MEAN CELL VOLUME 72.4 fl (80-96); MEAN PLT VOLUME 9.1 fl (7.5-11.1); MONO % 9.9 % (3.8-10.2); NEUT % 64.1 % (42.8-82.8); PLATELET COUNT 304 K/MM3 (134-434); RBC 4.44 M/mm3 (3.60-5.2); RDW 24.4 % (11.6-15.6); WHITE BLOOD COUNT 5.6 K/mm3 (4.0-10.0)
[2020-04-17] MEDS ORDERED: NIFEdipine E.R. 30 MG TABLET ONE (12:26)
[2020-04-17] MEDS: NIFEdipine E.R. 30 MG TABLET PO SCH (12:29)
[2020-04-17 12:49] LABS: ALBUMIN 3.6 g/dl (3.4-5.0); ANION GAP 5 MMOL/L (8-16); BILIRUBIN,TOTAL 0.5 mg/dL (0.2-1); BLOOD UREA NITROGEN 9.3 mg/dL (7-18); CALCIUM 9.3 mg/dL (8.5-10.1); CHLORIDE 104 mmol/L (98-107); CO2 30 mmol/L (21-32); CREATININE 0.8 mg/dL (0.55-1.3); GLUCOSE,RANDOM 77 mg/dL (74-106); MAGNESIUM 2.3 mg/dL (1.8-2.4); POTASSIUM 4.1 mmol/L (3.5-5.1); SGOT/AST 22 U/L (15-37); SGPT/ALT 25 U/L (13-61); SODIUM 138 mmol/L (136-145); TOT PROT 7.8 g/dl (6.4-8.2)
[2020-04-17 13:19] LABS: ALK PHOS 112 U/L (45-117)
--- NOTE | 2020-04-17 15:09 | EKG ---
Test Reason : Blood Pressure : / mmHG Vent. Rate : 077 BPM Atrial Rate : 077 BPM P-R Int : 180 ms QRS Dur : 084 ms QT Int : 424 ms P-R-T Axes : 074 011 112 degrees QTc Int : 479 ms NORMAL SINUS RHYTHM POSSIBLE LEFT ATRIAL ENLARGEMENT T WAVE ABNORMALITY, CONSIDER LATERAL ISCHEMIA PROLONGED QT ABNORMAL ECG WHEN COMPARED WITH ECG OF 22-NOV-2017 21:29, T WAVE INVERSION NOW EVIDENT IN LATERAL LEADS Confirmed by MD Tony, Leonardo ([id number]) on 04/17/2020 3:08:59 PM Referred By: Confirmed By:Leonardo Jimenez MD
--- NOTE | 2020-04-17 16:11 | PN ---
Progress Note (short form) - Note Progress Note: No complaints s/p PRBC has h/o menorrhagia also h/o Iron def anemia-- never seen GI Vital Signs - 24 hr 04/16/20 04/16/20 04/16/20 20:05 22:12 23:10 Temperature 98.3 F Pulse Rate 81 Pulse Rate [ 80 60 Apical] Respiratory 18 18 Rate Blood Pressure 213/84 H Blood Pressure 221/108 H 196/97 H [Left Arm] O2 Sat by Pulse 99 100 Oximetry (%) 04/17/20 04/17/20 04/17/20 03:15 03:30 06:49 Temperature 97.9 F 97.9 F 98.2 F Pulse Rate Pulse Rate [ 56 L 60 57 L Apical] Respiratory 16 16 16 Rate Blood Pressure Blood Pressure 176/77 H 167/75 169/85 [Left Arm] O2 Sat by Pulse 100 100 100 Oximetry (%) 04/17/20 04/17/20 04/17/20 07:00 11:25 14:28 Temperature 98.1 F 98.2 F Pulse Rate Pulse Rate [ 57 L 54 L 68 Apical] Respiratory 17 17 18 Rate Blood Pressure Blood Pressure 190/101 H 204/99 H 167/89 [Left Arm] O2 Sat by Pulse 100 99 100 Oximetry (%) Current Medications Generic Name Dose Route Start Last Admin Trade Name Silvioq PRN Reason Stop Dose Admin Enalapril Maleate 20 mg 04/17/20 10:00 04/17/20 09:44 Vasotec - PO 20 mg DAILY ROBERTO Administration Hydrochlorothiazide 25 mg 04/17/20 10:00 04/17/20 09:44 Hctz - PO 25 mg DAILY ROBERTO Administration Nifedipine 30 mg 04/17/20 12:15 04/17/20 12:29 Procardia Xl - PO 30 mg DAILY ROBERTO Administration Laboratory Results - last 24 hr 04/16/20 04/16/20 04/16/20 10:06 10:06 10:06 WBC 6.2 RBC 2.99 L Hgb 6.3 L* Hct 20.2 L MCV 67.7 L MCH 20.9 L MCHC 31.0 L RDW 23.4 H Plt Count 310 MPV 8.9 D Absolute Neuts (auto) 3.3 Neutrophils % 52.9 Lymphocytes % 31.4 Monocytes % 9.9 Eosinophils % 3.3 Basophils % 2.5 H Nucleated RBC % 0 Hypochromia 2+ Microcytosis 1+ PT with INR INR PTT (Actin FS) Sodium 139 Potassium 3.8 Chloride 108 H Carbon Dioxide 28 Anion Gap 4 L BUN 15.2 Creatinine 0.8 Est GFR (CKD-EPI)AfAm 99.63 Est GFR (CKD-EPI)NonAf 85.96 Random Glucose 96 Calcium 8.5 Magnesium Iron 30 L TIBC 398 Iron Saturation 7 L Unsaturated IBC 368 H Ferritin 4.7 L Total Bilirubin 0.2 AST 26 ALT 26 Alkaline Phosphatase 143 H Troponin I < 0.02 B-Natriuretic Peptide 674.9 H Total Protein 7.3 Albumin 3.5 TSH 2.22 Urine Color Urine Appearance Urine pH Ur Specific [place] Urine Protein Urine Glucose (UA) Urine Ketones Urine Blood Urine Nitrite Urine Bilirubin Urine Urobilinogen Ur Leukocyte Esterase Blood Type Antibody Screen Crossmatch 04/16/20 04/16/20 04/16/20 10:45 10:45 10:45 WBC 5.5 RBC 3.00 L Hgb 6.3 L* Hct 20.6 L MCV 68.6 L MCH 21.0 L MCHC 30.6 L RDW 22.9 H Plt Count 295 MPV 9.6 Absolute Neuts (auto) 2.9 Neutrophils % 53.0 Lymphocytes % 31.5 Monocytes % 9.1 Eosinophils % 2.6 Basophils % 3.8 H Nucleated RBC % 0 Hypochromia Microcytosis PT with INR INR PTT (Actin FS) Sodium Potassium Chloride Carbon Dioxide Anion Gap BUN Creatinine Est GFR (CKD-EPI)AfAm Est GFR (CKD-EPI)NonAf Random Glucose Calcium Magnesium Iron TIBC Iron Saturation Unsaturated IBC Ferritin Total Bilirubin AST ALT Alkaline Phosphatase Troponin I B-Natriuretic Peptide Total Protein Albumin TSH Urine Color Yellow Urine Appearance Clear Urine pH 7.5 D Ur Specific [place] 1.007 L Urine Protein Negative Urine Glucose (UA) Negative Urine Ketones Negative Urine Blood Negative Urine Nitrite Negative Urine Bilirubin Negative Urine Urobilinogen 0.2 Ur Leukocyte Esterase Negative Blood Type O POSITIVE Antibody Screen Negative Crossmatch See Detail 04/16/20 04/17/20 04/17/20 23:08 11:50 11:50 WBC 5.6 RBC 4.44 Hgb 10.1 L Hct 32.1 L D MCV 72.4 L MCH 22.8 L MCHC 31.5 L RDW 24.4 H Plt Count 304 MPV 9.1 Absolute Neuts (auto) 3.6 Neutrophils % 64.1 D Lymphocytes % 21.5 D Monocytes % 9.9 Eosinophils % 2.6 Basophils % 1.9 Nucleated RBC % 0 Hypochromia Microcytosis PT with INR 12.80 INR 1.08 PTT (Actin FS) 30.2 Sodium 138 Potassium 4.1 Chloride 104 Carbon Dioxide 30 Anion Gap 5 L BUN 9.3 Creatinine 0.8 Est GFR (CKD-EPI)AfAm 99.63 Est GFR (CKD-EPI)NonAf 85.96 Random Glucose 77 Calcium 9.3 Magnesium 2.3 Iron TIBC Iron Saturation Unsaturated IBC Ferritin Total Bilirubin 0.5 AST 22 ALT 25 Alkaline Phosphatase 112 Troponin I < 0.02 B-Natriuretic Peptide Total Protein 7.8 Albumin 3.6 TSH Urine Color Urine Appearance Urine pH Ur Specific [place] Urine Protein Urine Glucose (UA) Urine Ketones Urine Blood Urine Nitrite Urine Bilirubin Urine Urobilinogen Ur Leukocyte Esterase Blood Type Antibody Screen Crossmatch S1 S2 RRR Lungs clear Abd- soft, obese, NT no edema PLAN Hb better after transfusion GI eval start Iron check stool guaic monitor BP -- will adjust meds accordingly Problem List - Problems (1) Abdominal pain Code(s): R10.9 - UNSPECIFIED ABDOMINAL PAIN Qualifiers: Abdominal location: right upper quadrant Qualified Code(s): R10.11 - Right upper quadrant pain (2) Anemia Code(s): D64.9 - ANEMIA, UNSPECIFIED (3) Hypertension Code(s): I10 - ESSENTIAL (PRIMARY) HYPERTENSION (4) Hypertensive urgency Code(s): I16.0 - HYPERTENSIVE URGENCY
[2020-04-17] MEDS ORDERED: ACETAMINOPHEN 325 MG TABLET (FP) PO PRN (20:42)
--- NOTE | 2020-04-17 20:44 | HOSP ---
Subjective - Review of Symptoms Events since last encounter: Hospitalist Encounter Notified by the RN, that the patient wanted to speak to the provider regarding her Renal US and Lab results, was asked to assess. Arrived to bedside, patient is alert, awake and oriented, she reports having a frontal headache 6/10, no other complaints. Discussed the renal US and hematology results, patient verbalized understanding. Plan: Tylenol prn Physical Examination Vital Signs: Vital Signs Temperature 98.6 F 04/17/20 18:16 Pulse Rate 70 04/17/20 18:16 Respiratory Rate 18 04/17/20 18:16 Blood Pressure 172/85 H 04/17/20 18:16 O2 Sat by Pulse Oximetry (%) 98 04/17/20 18:16 Labs: CBC, BMP 04/17/20 11:50 04/17/20 11:50 Current Medications Generic Name Dose Route Start Last Admin Trade Name Freq PRN Reason Stop Dose Admin Acetaminophen 650 mg 04/17/20 20:42 04/18/20 02:18 Tylenol - PO 650 mg Q4H PRN Administration PAIN LEVEL 4 - 6 Enalapril Maleate 20 mg 04/17/20 10:00 04/17/20 09:44 Vasotec - PO 20 mg DAILY ROBERTO Administration Hydrochlorothiazide 25 mg 04/17/20 10:00 04/17/20 09:44 Hctz - PO 25 mg DAILY ROBERTO Administration Nifedipine 30 mg 04/17/20 12:15 04/17/20 12:29 Procardia Xl - PO 30 mg DAILY ROBERTO Administration Hospitalist Encounter Assessment: This is a 49 y/o female with a PMHx of HTN (non-compliant with Enalapril, HCTZ), Anemia (noncompliant with iron supplements), Goiter s/p partial thyroidectomy. Admitted to Telemetry for Hypertensive Urgency, EKG Changes, Symptomatic Anemia
[2020-04-18] MEDS ORDERED: ACETAMINOPHEN 325 MG TABLET (FP) ONE ×3 (01:23→10:06)
[2020-04-18] MEDS ORDERED: PROCHLORPERAZINE INJECTION 10 MG/2 ML VIAL IVPB ONE (01:28)
[2020-04-18 06:16] VITALS: TEMP 97.9
[2020-04-18 06:22] LABS: HEMATOCRIT 32.2 % (32.4-45.2); HEMOGLOBIN 10.2 GM/dL (10.7-15.3); MCH 22.8 pg (25.7-33.7); MCHC 31.8 g/dl (32.0-36.0); MEAN CELL VOLUME 71.8 fl (80-96); MEAN PLT VOLUME 9.2 fl (7.5-11.1); PLATELET COUNT 305 K/MM3 (134-434); RBC 4.49 M/mm3 (3.60-5.2); RDW 22.8 % (11.6-15.6); WHITE BLOOD COUNT 6.9 K/mm3 (4.0-10.0)
[2020-04-18 06:51] LABS: ALBUMIN 3.6 g/dl (3.4-5.0); BILIRUBIN,TOTAL 0.4 mg/dL (0.2-1); BLOOD UREA NITROGEN 12.7 mg/dL (7-18); CREATININE 0.8 mg/dL (0.55-1.3); POTASSIUM 3.8 mmol/L (3.5-5.1); TOT PROT 7.5 g/dl (6.4-8.2)
[2020-04-18] MEDS ORDERED: ENALAPRIL MALEATE 5 MG TABLET ONE (10:06)
[2020-04-18] MEDS ORDERED: HYDROCHLOROTHIAZIDE 25 MG TABLET (FP) ONE (10:06)
[2020-04-18] MEDS ORDERED: NIFEdipine E.R. 30 MG TABLET ONE (10:07)
--- NOTE | 2020-04-18 10:15 | ECHO ---
Version: 1 Name: LEN HERNANDEZ Exam: Adult Echocardiogram Study Date: 04/18/2020, 9:18 AM Age: 49 Years MMode/2D Measurements & Calculations IVSd: 1.51 cm LVIDs: 2.7 cm LVIDd: 4.7 cm LVPWd: 1.45 cm LAV (MOD-bp): 90.0 ml ACS: 1.83 cm Ao root diam: 2.31 cm LVOT diam: 1.96 cm LA dimension: 3.7 cm Doppler Measurements & Calculations MV E max devang: 116.0 cm/sec Med E/e': 32.2 MV A max devang: 93.2 cm/sec Med Peak E' Devang: 3.6 cm/sec MV E/A: 1.25 Lat E/e': 17.0 Lat Peak E' Devang: 6.8 cm/sec Ao max P.8 mmHg RICK(I,D): 2.00 cm Ao mean P.4 mmHg LV V1 mean: 69.0 cm/sec Ao V2 max: 139.8 cm/sec LV V1 mean P.35 mmHg TR max devang: 285.0 cm/sec TR max P.0 mmHg Procedure A complete two-dimensional transthoracic echocardiogram was performed (2D, M-mode, Doppler and color flow Doppler). Left Ventricle The left ventricle is normal in size. There is moderate concentric left ventricular hypertrophy. Lef t ventricular systolic function is normal. Ejection Fraction = 60-65%. Diastolic dysfunction, Grade II (pseudonormalization pattern). No regional wall motion abnormalities noted. Right Ventricle The right ventricle is normal size. The right ventricular wall motion is normal. Atria LA likely normal in size. Right atrial size is normal. Mitral Valve The mitral valve leaflets appear normal. There is no evidence of stenosis, fluttering, or prolapse. There is mild mitral regurgitation. Tricuspid Valve The tricuspid valve is not well visualized, but is grossly normal. There is mild tricuspid regurgita tion. Aortic Valve There is mild aortic sclerosis.;. No aortic regurgitation is present. Pulmonic Valve The pulmonic valve is not well seen, but is grossly normal. Mild pulmonic valvular regurgitation. Great Vessels The aortic root is normal size. Pericardium/Pleura There is no pericardial effusion. Summary Statements The left ventricle is normal in size. There is moderate concentric left ventricular hypertrophy. Left ventricular systolic function is normal. No regional wall motion abnormalities noted. Ejection Fraction = 60-65%. Diastolic dysfunction, Grade II (pseudonormalization pattern). The right ventricular wall motion is normal. There is mild mitral regurgitation. There is mild tricuspid regurgitation. There is mild aortic sclerosis. Mild pulmonic valvular regurgitation. There is no pericardial effusion. Andrei Napier MD 04/18/2020, 10:14 AM Ordering Physician: Christofer Nelson Referring Physician: CHRISTOFER NELSON Performed By: Kassie Palacios
[2020-04-18] MEDS: ENALAPRIL MALEATE 10 MG TABLET PO SCH (10:45)
[2020-04-18] MEDS: NIFEdipine E.R. 30 MG TABLET PO SCH (10:45)
[2020-04-18] MEDS: HYDROCHLOROTHIAZIDE 25 MG TABLET (FP) PO SCH (10:45)
--- NOTE | 2020-04-18 12:04 | PN ---
Progress Note (short form) - Note Progress Note: Chief Complaint: LE edema History of Present Illness: This is a 49 y/o female with a PMHx of HTN (non-compliant Enalapril, HCTZ), Anemia (non-compliant with iron supplements), Goiter s/p partial thyroidectomy. Who presents to the ED for bilateral lower extremity swelling x4 days. Patient also reports SOB on exertion x3 days and heavy menses lasting 7 days. Patient reports not taking her antihypertensive meds x 3 weeks due to accidentally thr owing them out. She reports her menstrual cycle ended yesterday. Patient denies fever, chills, cough, NULL, blurred vision, CP, palpitations, AP, N/V/D, melena, hematochezia, hematuria, dysuria. Patient denies recent sick contacts or travel. BNP initiall >200/100; received Enalapril and HCTZ in ER. We are asked to see for hypertension. s: no cp sob palps dizzy Current Medications Generic Name Dose Route Start Last Admin Trade Name Silvioq PRN Reason Stop Dose Admin Acetaminophen 650 mg 04/17/20 20:42 04/18/20 02:18 Tylenol - PO 650 mg Q4H PRN Administration PAIN LEVEL 4 - 6 Enalapril Maleate 20 mg 04/17/20 10:00 04/18/20 10:45 Vasotec - PO 20 mg DAILY ROBERTO Administration Hydrochlorothiazide 25 mg 04/17/20 10:00 04/18/20 10:45 Hctz - PO 25 mg DAILY ROBERTO Administration Nifedipine 30 mg 04/17/20 12:15 04/18/20 10:45 Procardia Xl - PO 30 mg DAILY ROBERTO Administration Vital Signs Period Temp Pulse Resp BP Sys/Sarah Pulse Ox Last 24 Hr 97.9 F-98.6 F 59-70 18-18 131-172/72-89 98-100 Constitutional: Yes: No Distress, Calm Eyes: Yes: Conjunctiva Clear Neck: Yes: Supple, Trachea Midline Respiratory: Yes: CTA Bilaterally (no wheezing or rales.) Gastrointestinal: Yes: Soft (nt) Cardiovascular: Yes: Regular Rate and Rhythm JVD: No Carotid Bruit: No PMI: Non-Displaced Heart Sounds: Yes: S1, S2 Murmur: Yes: Systolic Murmur Edema: trace Peripheral Pulses WNL: Yes Neurological: Yes: Alert, Oriented no jaundice diaphoresis Laboratory Last Values WBC 6.9 K/mm3 (4.0-10.0) 04/18/20 05:50 RBC 4.49 M/mm3 (3.60-5.2) 04/18/20 05:50 Hgb 10.2 GM/dL (10.7-15.3) L 04/18/20 05:50 Hct 32.2 % (32.4-45.2) L 04/18/20 05:50 MCV 71.8 fl (80-96) L 04/18/20 05:50 MCH 22.8 pg (25.7-33.7) L 04/18/20 05:50 MCHC 31.8 g/dl (32.0-36.0) L 04/18/20 05:50 RDW 22.8 % (11.6-15.6) H 04/18/20 05:50 Plt Count 305 K/MM3 (134-434) 04/18/20 05:50 MPV 9.2 fl (7.5-11.1) 04/18/20 05:50 Absolute Neuts (auto) 3.6 K/mm3 (1.5-8.0) 04/17/20 11:50 Neutrophils % 64.1 % (42.8-82.8) D 04/17/20 11:50 Lymphocytes % 21.5 % (8-40) D 04/17/20 11:50 Monocytes % 9.9 % (3.8-10.2) 04/17/20 11:50 Eosinophils % 2.6 % (0-4.5) 04/17/20 11:50 Basophils % 1.9 % (0-2.0) 04/17/20 11:50 Nucleated RBC % 0 % (0-0) 04/17/20 11:50 Hypochromia 2+ 04/16/20 10:06 Microcytosis 1+ 04/16/20 10:06 PT with INR 12.80 SEC (9.7-13.0) 04/16/20 23:08 INR 1.08 (0.83-1.09) 04/16/20 23:08 PTT (Actin FS) 30.2 SECONDS (25.2-36.5) 04/16/20 23:08 Sodium 139 mmol/L (136-145) 04/18/20 05:50 Potassium 3.8 mmol/L (3.5-5.1) 04/18/20 05:50 Chloride 104 mmol/L (98-107) 04/18/20 05:50 Carbon Dioxide 28 mmol/L (21-32) 04/18/20 05:50 Anion Gap 7 MMOL/L (8-16) L 04/18/20 05:50 BUN 12.7 mg/dL (7-18) 04/18/20 05:50 Creatinine 0.8 mg/dL (0.55-1.3) 04/18/20 05:50 Est GFR (CKD-EPI)AfAm 99.63 04/18/20 05:50 Est GFR (CKD-EPI)NonAf 85.96 04/18/20 05:50 Random Glucose 86 mg/dL (74-106) 04/18/20 05:50 Calcium 9.0 mg/dL (8.5-10.1) 04/18/20 05:50 Magnesium 2.3 mg/dL (1.8-2.4) 04/17/20 11:50 Iron 30 ug/dL (50-175) L 04/16/20 10:06 TIBC 398 ug/dL (250-450) 04/16/20 10:06 Iron Saturation 7 % (17.5-39) L 04/16/20 10:06 Unsaturated IBC 368 ug/dL (200-275) H 04/16/20 10:06 Ferritin 4.7 ng/ml (8-388) L 04/16/20 10:06 Total Bilirubin 0.4 mg/dL (0.2-1) 04/18/20 05:50 AST 18 U/L (15-37) 04/18/20 05:50 ALT 21 U/L (13-61) 04/18/20 05:50 Alkaline Phosphatase 115 U/L (45-117) 04/18/20 05:50 Troponin I < 0.02 ng/ml (0.00-0.05) 04/17/20 11:50 B-Natriuretic Peptide 674.9 pg/ml (5-125) H 04/16/20 10:06 Total Protein 7.5 g/dl (6.4-8.2) 04/18/20 05:50 Albumin 3.6 g/dl (3.4-5.0) 04/18/20 05:50 TSH 2.22 uIU/ml (0.358-3.74) 04/16/20 10:06 Urine Color Yellow 04/16/20 10:45 Urine Appearance Clear 04/16/20 10:45 Urine pH 7.5 (5.0-8.0) D 04/16/20 10:45 Ur Specific [place] 1.007 (1.010-1.035) L 04/16/20 10:45 Urine Protein Negative (NEGATIVE) 04/16/20 10:45 Urine Glucose (UA) Negative (NEGATIVE) 04/16/20 10:45 Urine Ketones Negative (NEGATIVE) 04/16/20 10:45 Urine Blood Negative (NEGATIVE) 04/16/20 10:45 Urine Nitrite Negative (NEGATIVE) 04/16/20 10:45 Urine Bilirubin Negative (NEGATIVE) 04/16/20 10:45 Urine Urobilinogen 0.2 mg/dL (0.2-1.0) 04/16/20 10:45 Ur Leukocyte Esterase Negative (NEGATIVE) 04/16/20 10:45 Blood Type O POSITIVE 04/16/20 10:45 Antibody Screen Negative 04/16/20 10:45 Crossmatch See Detail 04/16/20 10:45 NSR with nonspecific T wave inversions I, AvL, V6 new from 11/2017 Mildly prolonged QT 470s Echo 03/2020: mod lvh, nl lvef, nl rv, no sig valve path Imaging - Results Chest X-ray: Image Reviewed EKG: Image Reviewed Assessment/Plan IMP: Hypertensive urgency Anemia Murmur Edema Abnl ECG: nonspecific T wave/LAE/Mild prolonged QT REC: 1. Hypertensive urgency: in setting of non adherence with home meds -Improved with resumption of PO meds -Echo shows hypertensive heart disease, pt instructed on importance of taking meds and following up in office for bp monitoring. 2. Anemia: chronic, but worsened -seems most likely due to chronic heavy menses possibly secondary to fibroids -As per PMD 3. Murmur: -May be flow murmur due to marked anemia -Echo w/o significant valve dz 4. LE edema: -F/u official LE duplex, prelim negative -Probably component of chronic diastolic CHF due to hypertensive heart disease (mildly elevated BNP) -Edema should improve with resumption of HCTZ, does not require loop diuretic at this time 5. Abnl ECG: -LAE secondary chronic HTN, for Echo -Nonspecific T wave changes in setting marked anemia/uncontrolled HTN, troponin negative; do not suspect ACS -can d/c tele
--- NOTE | 2020-04-18 13:44 | DS ---
Physical Examination Vital Signs: Vital Signs Temperature 97.9 F 04/18/20 06:15 Pulse Rate 74 04/18/20 12:50 Respiratory Rate 20 04/18/20 12:50 Blood Pressure 195/91 H 04/18/20 12:50 O2 Sat by Pulse Oximetry (%) 100 04/18/20 12:50 Findings/Remarks: pt seen/ examined chart reviewed awake/ comfortable denies cp/sob/abd pain no bleeding noted anxiety + Constitutional: Yes: No Distress, Anxious Neck: Yes: Supple Cardiovascular: Yes: Regular Rate and Rhythm Respiratory: Yes: CTA Bilaterally Gastrointestinal: Yes: Soft Edema: LLE: Trace, RLE: Trace Neurological: Yes: Alert Psychiatric: Yes: Alert Labs: CBC, BMP 04/18/20 05:50 04/18/20 05:50 Discharge Summary Problems reviewed: Yes Reason For Visit: ANEMIA, SWELLING OF LOWER EXTREMITY, ACUTE Current Active Problems Acute electrocardiogram changes (Acute) Anemia (Acute) Elevated brain natriuretic peptide (BNP) level (Acute) Encounter for screening laboratory testing for COVID-19 virus (Acute) Hypertension (Acute) Hypertensive urgency (Acute) Leg swelling (Acute) Symptomatic anemia (Acute) Hospital Course: patient admitted for severe anemia--and hypertension urgency Compliance issues did not take medication For few weeks Reports heavy periods got transfused Overall much better No apparent bleeding Hemoglobin stable blood pressure much better Stable for discharge Compliance strongly stressed medications prescribed/Reconsilled Strongly advised to follow up with GI----need workup--- as outpatient strongly advised to follow up with [facility] also Patient in agreement close monitoring Follow up in office next week-- Condition: Stable - Instructions Referrals: Leena Kumar MD [Primary Care Provider] - Disposition: HOME - Home Medications Comprehensive Discharge Medication List: Ambulatory Orders Enalapril/Hydrochlorothiazide [Vaseretic 10-25 mg Tablet] 1 each PO DAILY 5 Days #5 tablet 04/16/20 Acetaminophen [Tylenol .Regular Strength -] 650 mg PO Q4H PRN tablet 04/18/20 Enalapril Maleate [Vasotec -] 20 mg PO DAILY 30 Days #30 tablet 04/18/20 Hydrochlorothiazide [Hctz -] 25 mg PO DAILY 30 Days #30 tablet 04/18/20 Nifedipine ER [Procardia XL -] 30 mg PO DAILY 30 Days #30 tab.[email or web address] 04/18/20
[2020-04-18 15:10] VITALS: BP 168/96; PULSE 69
--- NOTE | 2020-04-18 18:02 | PN ---
Progress Note (short form) - Note Progress Note: patient being discharged. I will call patient for out patient follow up Thank you \
== END 2020-04-18 15:00 | disposition home or self-care (01) | DRG 663 ==
LOC: JER 20:02 → JERBED 23:32
PROVIDERS: ADMIT Internal Medicine; ATTEND Internal Medicine
PROC: 30233N1 Transfusion of Nonautologous Red Blood Cells into Peripheral Vein, Percutaneous Approach (ICD-10-PCS; principal; 2020-04-17)
DX: D64.9 Anemia, unspecified (principal); I16.0 Hypertensive urgency; I10 Essential (primary) hypertension; R01.1 Cardiac murmur, unspecified; R94.31 Abnormal electrocardiogram [ECG] [EKG]; M79.89 Other specified soft tissue disorders; Z91.14 Patient's other noncompliance with medication regimen
CPT/HCPCS: 36415; 36430; 71045-TC-FY; 76775-TC; 80053; 81003; 82728; 83540; 83550; 83735; 83880; 84443; 84484; 85025; 85027; 85610; 85730; 86850; 86900; 86901; 86922; 93005; 93010; 93306-TC; 93970-TC; 99285-25; J0131; P9058; U0003

== ENCOUNTER 2021-02-16 05:57 | Inpatient (IN) | payer BC, OTHER ==
[2021-02-16 06:35] LABS: HEMATOCRIT 35.3 % (32.4-45.2); HEMOGLOBIN 11.7 GM/dL (10.7-15.3); MCH 27.3 pg (25.7-33.7); MCHC 33.2 g/dl (32.0-36.0); MEAN CELL VOLUME 82.2 fl (80-96); MEAN PLT VOLUME 10.2 fl (7.5-11.1); PLATELET COUNT 170 10^3/uL (134-434); RBC 4.29 M/mm3 (3.60-5.2); WHITE BLOOD COUNT 4.3 K/mm3 (4.0-10.0)
[2021-02-16 06:59] LABS: CALCIUM 8.6 mg/dL (8.5-10.1)
[2021-02-16 07:00] LABS: ALBUMIN 3.5 g/dl (3.4-5.0); BLOOD UREA NITROGEN 13.7 mg/dL (7-18)
[2021-02-16 07:03] LABS: CREATININE 0.9 mg/dL (0.55-1.3)
[2021-02-16 07:05] LABS: BILIRUBIN,TOTAL 0.3 mg/dL (0.2-1)
[2021-02-16] MEDS ORDERED: ASPIRIN 81 MG CHEWABLE TABLETS PO ONE ×2 (07:56→09:47)
[2021-02-16] MEDS ORDERED: ASPIRIN 81 MG CHEWABLE TABLETS ONE ×2 (08:07→10:06)
[2021-02-16] MEDS ORDERED: LABETALOL HCL 200 MG TABLET (FP) PO ONE (08:21)
[2021-02-16] MEDS ORDERED: ENALAPRIL MALEATE 10 MG TABLET PO ONE (08:22)
[2021-02-16] MEDS ORDERED: ACETAMINOPHEN 1000 MG/100 ML VIAL (NON FORMULARY) IVPB ONE (08:23)
[2021-02-16] MEDS ORDERED: SODIUM CHLORIDE 0.9% 500 ML INFUS.BAG IV ONE (08:23)
[2021-02-16] MEDS ORDERED: LABETALOL HCL 100 MG TABLET (FP) ONE (08:30)
[2021-02-16] MEDS ORDERED: ACETAMINOPHEN INJECTION 100 ML IVPB ONE (08:31)
[2021-02-16] MEDS ORDERED: ENALAPRIL MALEATE 5 MG TABLET ONE (08:31)
[2021-02-16 08:33] LABS: VENOUS BASE EXCESS 3.3 mmol/L (-2-2); VENOUS O2 SATURATION 62.7 % (70-80); VENOUS PCO2 52.7 mmHg (38-52); VENOUS PH 7.369 (7.310-7.410)
[2021-02-16 08:44] LABS: INR 1.09 (0.83-1.09); PROTHROMBIN TIME (PATIENT) 13.2 SEC (9.7-13.0)
[2021-02-16] MEDS ORDERED: ONDANSETRON 4 MG/2 ML VIAL IVPUSH ONE (08:46)
[2021-02-16 08:47] LABS: ACTIVATED PTT 31.3 SECONDS (25.2-36.5)
[2021-02-16] MEDS ORDERED: hydrALAZINE HCL 50 MG TABLET (FP) PO ONE (08:47)
[2021-02-16 08:58] LABS: MAGNESIUM 2.1 mg/dL (1.8-2.4)
[2021-02-16 09:00] LABS: BILIRUBIN,DIRECT 0.1 mg/dL (0.0-0.2)
[2021-02-16 09:01] LABS: PHOSPHOROUS 3.4 mg/dL (2.5-4.9)
[2021-02-16 09:05] LABS: N-TERMINAL BNP 614.4 pg/ml (5-125)
[2021-02-16] MEDS ORDERED: hydrALAZINE HCL 25 MG TABLET (FP) ONE (09:07)
[2021-02-16] MEDS ORDERED: ONDANSETRON 4 MG/2 ML VIAL ONE (09:07)
[2021-02-16 09:40] LABS: PH,URINE 6.5 (5.0-8.0); URINE APPEARANCE Clear; URINE BILIRUBIN Negative (NEGATIVE); URINE COLOR Yellow; URINE GLUCOSE (UA) Negative (NEGATIVE); URINE KETONE Negative (NEGATIVE); URINE LEUK ESTERASE Negative (NEGATIVE); URINE NITRITE Negative (NEGATIVE); URINE PROTEIN Negative (NEGATIVE); URINE UROBILINOGEN 0.2 mg/dL (0.2-1.0)
[2021-02-16] MEDS ORDERED: CLOPIDOGREL BISULFATE 75 MG TABLET (FP) PO ONE (09:47)
[2021-02-16] MEDS ORDERED: ATORVASTATIN CA 80 MG TABLET (FP) PO ONE (09:47)
[2021-02-16] MEDS ORDERED: HEPARIN NA (PORCINE) 5,000 UNITS/ML 1ML VIAL IVPUSH PRN ×2 (09:48)
[2021-02-16] MEDS ORDERED: HEPARIN NA (PORCINE) 5,000 UNITS/ML 1ML VIAL IVPUSH ONE (09:48)
[2021-02-16] MEDS ORDERED: HEPARIN - 25,000 UNIT in SODIUM CHLORIDE 495 ML IV SCH (10:00)
[2021-02-16] MEDS ORDERED: CLOPIDOGREL BISULFATE 75 MG TABLET (FP) ONE (10:06)
[2021-02-16] MEDS ORDERED: HEPARIN INFUSION - 25,000 UNITS/500 ML INFUS.BAG IVPB ONE (10:06)
[2021-02-16] MEDS ORDERED: HEPARIN NA (PORCINE) 5,000 UNITS/ML 1ML VIAL ONE (10:06)
[2021-02-16] MEDS ORDERED: ATORVASTATIN CA 80 MG TABLET (FP) ONE (10:06)
[2021-02-16] MEDS: METOPROLOL TARTRATE 25 MG TABLET (FP) PO SCH ×2 (15:52→21:20)
[2021-02-16 16:45] VITALS: BMI 25.9
[2021-02-16] MEDS ORDERED: ACETAMINOPHEN 325 MG TABLET (FP) PO PRN (17:21)
[2021-02-16] MEDS: ACETAMINOPHEN 325 MG TABLET (FP) PO PRN (17:45)
[2021-02-16 18:23] LABS: INR 1.15 (0.83-1.09); PROTHROMBIN TIME (PATIENT) 13.8 SEC (9.7-13.0)
[2021-02-16 19:09] LABS: ACTIVATED PTT 120.5 SECONDS (25.2-36.5)
[2021-02-16] MEDS: hydrALAZINE HCL 50 MG TABLET (FP) PO SCH (21:20)
[2021-02-17] MEDS: METOPROLOL TARTRATE 25 MG TABLET (FP) PO SCH (06:30)
[2021-02-17] MEDS: ENALAPRIL MALEATE 10 MG TABLET PO SCH ×2 (08:34→13:30)
[2021-02-17] MEDS: hydrALAZINE HCL 50 MG TABLET (FP) PO SCH ×3 (08:34→21:40)
[2021-02-17] MEDS: amLODIPine BESYLATE 2.5 MG TABLET (FP) PO SCH ×2 (08:34→14:51)
[2021-02-17] MEDS: ACETAMINOPHEN 325 MG TABLET (FP) PO PRN ×2 (09:39→21:16)
[2021-02-17] MEDS ORDERED: PT OWN MED DRAWER 7, Y5N ONE (09:58)
[2021-02-17] MEDS ORDERED: HYDROCHLOROTHIAZIDE 25 MG TABLET (FP) PO SCH (10:00)
[2021-02-17] MEDS ORDERED: ENALAPRIL MALEATE 10 MG TABLET PO ONE (10:56)
[2021-02-17 11:32] LABS: CALCIUM 8.7 mg/dL (8.5-10.1)
[2021-02-17 11:33] LABS: BLOOD UREA NITROGEN 13.5 mg/dL (7-18)
[2021-02-17 11:36] LABS: CREATININE 0.9 mg/dL (0.55-1.3)
[2021-02-17] MEDS ORDERED: ONDANSETRON 4 MG/2 ML VIAL IVPB PRN (12:39)
[2021-02-17] MEDS: ASPIRIN 81 MG CHEWABLE TABLETS PO SCH (14:37)
[2021-02-17] MEDS: FUROSEMIDE 40 MG TABLET (FP) PO SCH (14:37)
[2021-02-17] MEDS: CHLORTHALIDONE 25 MG TABLET PO SCH (14:37)
[2021-02-17] MEDS ORDERED: hydrALAZINE HCL 50 MG TABLET (FP) PO ONE (18:30)
[2021-02-17] MEDS ORDERED: METOPROLOL TARTRATE 50 MG TABLET (FP) PO ONE (18:30)
[2021-02-17] MEDS: METOPROLOL TARTRATE 50 MG TABLET (FP) PO SCH (21:16)
[2021-02-17] MEDS: ATORVASTATIN CA 10 MG TABLET (FP) PO SCH (21:17)
[2021-02-17] MEDS ORDERED: ATORVASTATIN CA 80 MG TABLET (FP) PO SCH (22:00)
[2021-02-18] MEDS ORDERED: ACETAMINOPHEN/CAFFEINE/BUTALBITAL 1 TAB PO ONE (02:10)
[2021-02-18 07:43] LABS: HEMATOCRIT 36.4 % (32.4-45.2); HEMOGLOBIN 12.4 GM/dL (10.7-15.3); MCH 28.2 pg (25.7-33.7); MCHC 34.2 g/dl (32.0-36.0); MEAN CELL VOLUME 82.4 fl (80-96); MEAN PLT VOLUME 10.9 fl (7.5-11.1); PLATELET COUNT 171 10^3/uL (134-434); RBC 4.42 M/mm3 (3.60-5.2); RDW 19.9 % (11.6-15.6); WHITE BLOOD COUNT 5.1 K/mm3 (4.0-10.0)
[2021-02-18 08:07] LABS: BLOOD UREA NITROGEN 16.2 mg/dL (7-18)
[2021-02-18 08:08] LABS: CALCIUM 9.4 mg/dL (8.5-10.1)
[2021-02-18] MEDS: ASPIRIN 81 MG CHEWABLE TABLETS PO SCH (09:00)
[2021-02-18] MEDS: ENALAPRIL MALEATE 10 MG TABLET PO SCH (09:00)
[2021-02-18] MEDS: hydrALAZINE HCL 50 MG TABLET (FP) PO SCH ×2 (09:01→21:03)
[2021-02-18] MEDS: METOPROLOL TARTRATE 50 MG TABLET (FP) PO SCH ×2 (09:01→21:03)
[2021-02-18] MEDS: CHLORTHALIDONE 25 MG TABLET PO SCH (09:01)
[2021-02-18] MEDS: FUROSEMIDE 40 MG TABLET (FP) PO SCH (09:01)
[2021-02-18] MEDS: NIFEdipine E.R 60 MG TABLET PO SCH (09:50)
[2021-02-18] MEDS: POLYETHYLENE GLYCOL (HEALTHYLAX) 3350 17 GM PACKET PO SCH ×2 (13:41→21:03)
[2021-02-18] MEDS: ACETAMINOPHEN 325 MG TABLET (FP) PO PRN (17:32)
[2021-02-18] MEDS ORDERED: CYCLOBENZAPRINE HCL 10 MG TABLET (FP) PO ONE (20:10)
[2021-02-18] MEDS: ATORVASTATIN CA 10 MG TABLET (FP) PO SCH (21:03)
[2021-02-19 08:08] LABS: HEMATOCRIT 38.3 % (32.4-45.2); MCH 27.7 pg (25.7-33.7); MCHC 33.8 g/dl (32.0-36.0); MEAN PLT VOLUME 10.5 fl (7.5-11.1); PLATELET COUNT 183 10^3/uL (134-434); RBC 4.67 M/mm3 (3.60-5.2); RDW 19.5 % (11.6-15.6); WHITE BLOOD COUNT 4.8 K/mm3 (4.0-10.0)
[2021-02-19] MEDS: hydrALAZINE HCL 50 MG TABLET (FP) PO SCH ×2 (09:14→21:09)
[2021-02-19] MEDS: ENALAPRIL MALEATE 10 MG TABLET PO SCH (09:14)
[2021-02-19] MEDS: METOPROLOL TARTRATE 50 MG TABLET (FP) PO SCH ×2 (09:14→21:09)
[2021-02-19] MEDS: NIFEdipine E.R 60 MG TABLET PO SCH (09:14)
[2021-02-19] MEDS: FUROSEMIDE 40 MG TABLET (FP) PO SCH (09:14)
[2021-02-19] MEDS: ASPIRIN 81 MG CHEWABLE TABLETS PO SCH (09:14)
[2021-02-19] MEDS: POLYETHYLENE GLYCOL (HEALTHYLAX) 3350 17 GM PACKET PO SCH ×2 (09:15→21:09)
[2021-02-19] MEDS: CHLORTHALIDONE 25 MG TABLET PO SCH (09:15)
[2021-02-19] MEDS ORDERED: CEFTRIAXONE 1,000 MG in DEXTROSE 5%-WATER - 50 ML IVPB SCH (14:30)
[2021-02-19] MEDS: ATORVASTATIN CA 10 MG TABLET (FP) PO SCH (21:09)
[2021-02-20 07:39] LABS: HEMATOCRIT 38.9 % (32.4-45.2); HEMOGLOBIN 13.1 GM/dL (10.7-15.3); MCH 27.6 pg (25.7-33.7); MCHC 33.7 g/dl (32.0-36.0); MEAN CELL VOLUME 81.8 fl (80-96); MEAN PLT VOLUME 10.2 fl (7.5-11.1); PLATELET COUNT 167 10^3/uL (134-434); RBC 4.76 M/mm3 (3.60-5.2); RDW 19.3 % (11.6-15.6); WHITE BLOOD COUNT 4.8 K/mm3 (4.0-10.0)
[2021-02-20] MEDS ORDERED: cefTRIAXone SODIUM 1 GM VIAL ONE (13:45)
[2021-02-20] MEDS ORDERED: DEXTROSE 5%-WATER - 50 ML IVPB ONE (13:45)
[2021-02-20] MEDS: ASPIRIN 81 MG CHEWABLE TABLETS PO SCH (14:30)
[2021-02-20] MEDS: hydrALAZINE HCL 50 MG TABLET (FP) PO SCH ×2 (14:30→21:21)
[2021-02-20] MEDS: FUROSEMIDE 40 MG TABLET (FP) PO SCH (14:30)
[2021-02-20] MEDS: NIFEdipine E.R 60 MG TABLET PO SCH (14:30)
[2021-02-20] MEDS: METOPROLOL TARTRATE 50 MG TABLET (FP) PO SCH ×2 (14:30→21:21)
[2021-02-20] MEDS: ENALAPRIL MALEATE 10 MG TABLET PO SCH (14:30)
[2021-02-20] MEDS: POLYETHYLENE GLYCOL (HEALTHYLAX) 3350 17 GM PACKET PO SCH ×2 (14:31→21:21)
[2021-02-20] MEDS: CEFTRIAXONE 1 GM in DEXTROSE 5%-WATER - 50 ML IVPB SCH (14:31)
[2021-02-20] MEDS: CHLORTHALIDONE 25 MG TABLET PO SCH (14:31)
[2021-02-20] MEDS ORDERED: CYCLOBENZAPRINE HCL 10 MG TABLET (FP) PO ONE (21:02)
[2021-02-20] MEDS: ATORVASTATIN CA 10 MG TABLET (FP) PO SCH (21:21)
[2021-02-21 08:00] LABS: HEMOGLOBIN 12.8 GM/dL (10.7-15.3); MCH 27.8 pg (25.7-33.7); MCHC 33.8 g/dl (32.0-36.0); MEAN CELL VOLUME 82.2 fl (80-96); MEAN PLT VOLUME 10.5 fl (7.5-11.1); PLATELET COUNT 187 10^3/uL (134-434); RBC 4.62 M/mm3 (3.60-5.2); WHITE BLOOD COUNT 4.4 K/mm3 (4.0-10.0)
[2021-02-21] MEDS ORDERED: cefTRIAXone SODIUM 1 GM VIAL ONE (09:27)
[2021-02-21] MEDS ORDERED: DEXTROSE 5%-WATER - 50 ML IVPB ONE (09:27)
[2021-02-21] MEDS: POLYETHYLENE GLYCOL (HEALTHYLAX) 3350 17 GM PACKET PO SCH (09:30)
[2021-02-21] MEDS: ASPIRIN 81 MG CHEWABLE TABLETS PO SCH (09:30)
[2021-02-21] MEDS: ENALAPRIL MALEATE 10 MG TABLET PO SCH (09:31)
[2021-02-21] MEDS: METOPROLOL TARTRATE 50 MG TABLET (FP) PO SCH (09:31)
[2021-02-21] MEDS: hydrALAZINE HCL 50 MG TABLET (FP) PO SCH (09:31)
[2021-02-21] MEDS: FUROSEMIDE 40 MG TABLET (FP) PO SCH (09:32)
[2021-02-21] MEDS: CHLORTHALIDONE 25 MG TABLET PO SCH (09:32)
[2021-02-21] MEDS: CEFTRIAXONE 1 GM in DEXTROSE 5%-WATER - 50 ML IVPB SCH (09:32)
[2021-02-21] MEDS: NIFEdipine E.R 60 MG TABLET PO SCH (09:32)
[2021-02-21 15:30] VITALS: TEMP 98.2
[2021-02-21 15:32] VITALS: BP 127/65; PULSE 70
== END 2021-02-21 16:00 | disposition home or self-care (01) | DRG 282 ==
LOC: JER 05:57 → JERBED 09:24 → J4S 15:45
PROVIDERS: ADMIT Internal Medicine; ATTEND Internal Medicine
DX: I16.0 Hypertensive urgency (principal); I21.4 Non-ST elevation (NSTEMI) myocardial infarction; E04.9 Nontoxic goiter, unspecified; K59.09 Other constipation; R94.31 Abnormal electrocardiogram [ECG] [EKG]; G44.89 Other headache syndrome; F41.8 Other specified anxiety disorders
CPT/HCPCS: 36415; 70450-TC; 71045-TC-FY; 76512; 78452-TC; 80048; 80053; 80061; 81003; 82248; 82550; 82553; 82570; 82728; 82803; 83036; 83615; 83721; 83735; 83880; 83883; 84100; 84443; 84484; 84585; 85027; 85610; 85730; 86140; 87086; 87186; 87804; 93005; 93010; 93017; 93306-TC; 99285-25; A9502; C9803; J0131; J1644; U0003; U0005

== ENCOUNTER 2021-03-18 03:10 | Inpatient (IN) | payer BC, OTHER ==
[2021-03-18 06:42] LABS: EOS % 0.5 % (0-4.5); HEMATOCRIT 22.7 % (32.4-45.2); HEMOGLOBIN 7.7 GM/dL (10.7-15.3); LYMPH % 12.6 % (8-40); MCH 28.4 pg (25.7-33.7); MCHC 33.7 g/dl (32.0-36.0); MEAN CELL VOLUME 84.1 fl (80-96); MEAN PLT VOLUME 10.2 fl (7.5-11.1); MONO % 6.7 % (3.8-10.2); NEUT % 79.2 % (42.8-82.8); PLATELET COUNT 271 10^3/uL (134-434); RDW 16.3 % (11.6-15.6)
[2021-03-18 06:59] LABS: INR 1.12 (0.83-1.09); PROTHROMBIN TIME (PATIENT) 13.7 SEC (9.7-13.0)
[2021-03-18 07:00] LABS: CHLORIDE 99 mmol/L (98-107); SODIUM 139 mmol/L (136-145)
[2021-03-18 07:02] LABS: BLOOD UREA NITROGEN 24.8 mg/dL (7-18)
[2021-03-18] MEDS ORDERED: POTASSIUM CHLORIDE TABS 20 MEQ TABLET.ER (FP) PO ONE ×2 (07:02→07:22)
[2021-03-18 07:04] LABS: ALBUMIN 3.7 g/dl (3.4-5.0); ANION GAP 9 MMOL/L (8-16); CO2 31 mmol/L (21-32); GLUCOSE,RANDOM 95 mg/dL (74-106)
[2021-03-18 07:07] LABS: BILIRUBIN,TOTAL 0.2 mg/dL (0.2-1); CREATININE 1.3 mg/dL (0.55-1.3); SGOT/AST 28 U/L (15-37); SGPT/ALT 40 U/L (13-61); TOT PROT 7.7 g/dl (6.4-8.2)
[2021-03-18 07:08] LABS: ALK PHOS 104 U/L (45-117)
[2021-03-18] MEDS ORDERED: MAGNESIUM SULF 50% (8.12 MEQ/2 ML-1 GM VIAL) IVPB ONE (07:13)
[2021-03-18] MEDS ORDERED: MAGNESIUM SULFATE IN WATER 2 GM/50 ML IVPB IVPB ONE (07:22)
[2021-03-18 16:21] VITALS: BMI 24.9
[2021-03-18] MEDS: METOPROLOL TARTRATE 50 MG TABLET (FP) PO SCH (21:19)
[2021-03-18] MEDS: hydrALAZINE HCL 50 MG TABLET (FP) PO SCH (21:19)
[2021-03-19] MEDS: ACETAMINOPHEN 325 MG TABLET (FP) PO PRN ×3 (05:21→21:10)
[2021-03-19] MEDS ORDERED: FUROSEMIDE 40 MG TABLET (FP) PO SCH (10:00)
[2021-03-19] MEDS ORDERED: CHLORTHALIDONE 25 MG TABLET PO SCH (10:00)
[2021-03-19 10:05] LABS: HEMATOCRIT 28.2 % (32.4-45.2); MCHC 35.3 g/dl (32.0-36.0); MEAN CELL VOLUME 84.9 fl (80-96); MEAN PLT VOLUME 9.3 fl (7.5-11.1); PLATELET COUNT 291 10^3/uL (134-434); RBC 3.32 M/mm3 (3.60-5.2); RDW 15.5 % (11.6-15.6)
[2021-03-19] MEDS: hydrALAZINE HCL 50 MG TABLET (FP) PO SCH ×2 (11:43→21:11)
[2021-03-19] MEDS: NIFEdipine E.R 60 MG TABLET PO SCH (11:44)
[2021-03-19] MEDS: METOPROLOL TARTRATE 50 MG TABLET (FP) PO SCH ×2 (11:44→21:11)
[2021-03-19 20:23] LABS: EPI CELLS 3 /uL (0-25.1); HYALINE CASTS 0 /uL (0-3.1); URINE APPEARANCE TURBID; URINE BILIRUBIN 2+ (NEGATIVE); URINE COLOR RED; URINE GLUCOSE (UA) NEGATIVE (NEGATIVE); URINE KETONE NEGATIVE (NEGATIVE); URINE LEUK ESTERASE 2+ (NEGATIVE); URINE NITRITE POSITIVE (NEGATIVE); URINE PROTEIN 3+ (NEGATIVE); URINE RBC 7 /uL (0-23.9); URINE UROBILINOGEN 0.2 mg/dL (0.2-1.0); URINE WBC 0 /uL (0-25.8)
[2021-03-20] MEDS: ACETAMINOPHEN 325 MG TABLET (FP) PO PRN ×3 (06:08→19:25)
[2021-03-20 07:48] LABS: EOS % 0.4 % (0-4.5); HEMATOCRIT 24.2 % (32.4-45.2); HEMOGLOBIN 8.6 GM/dL (10.7-15.3); LYMPH % 15.6 % (8-40); MCH 29.7 pg (25.7-33.7); MCHC 35.3 g/dl (32.0-36.0); MEAN CELL VOLUME 83.9 fl (80-96); MEAN PLT VOLUME 8.7 fl (7.5-11.1); PLATELET COUNT 274 10^3/uL (134-434); RBC 2.88 M/mm3 (3.60-5.2); RDW 15.8 % (11.6-15.6); WHITE BLOOD COUNT 9.6 K/mm3 (4.0-10.0)
[2021-03-20 08:07] LABS: CALCIUM 8.6 mg/dL (8.5-10.1)
[2021-03-20 08:08] LABS: BLOOD UREA NITROGEN 20.3 mg/dL (7-18)
[2021-03-20 08:11] LABS: CREATININE 1.4 mg/dL (0.55-1.3)
[2021-03-20] MEDS ORDERED: POTASSIUM CHLORIDE ORAL LIQUID 20 MEQ/15 ML PO ONE (09:46)
[2021-03-20] MEDS: NIFEdipine E.R 60 MG TABLET PO SCH (09:49)
[2021-03-20] MEDS: hydrALAZINE HCL 50 MG TABLET (FP) PO SCH ×2 (09:50→21:11)
[2021-03-20] MEDS: METOPROLOL TARTRATE 50 MG TABLET (FP) PO SCH ×2 (09:53→21:11)
[2021-03-20] MEDS: POTASSIUM CHLORIDE TABS 20 MEQ TABLET.ER (FP) PO SCH (12:58)
[2021-03-20] MEDS ORDERED: cefTRIAXone SODIUM 1 GM VIAL ONE (18:00)
[2021-03-20] MEDS ORDERED: DEXTROSE 5%-WATER - 50 ML IVPB ONE (18:00)
[2021-03-20] MEDS: CEFTRIAXONE 1 GM in DEXTROSE 5%-WATER - 50 ML IVPB SCH (18:17)
[2021-03-20] MEDS: SODIUM CHLORIDE 0.9%/KCL 20 MEQ/1,000 ML INFUS.BAG IV SCH (18:18)
[2021-03-21] MEDS: SODIUM CHLORIDE 0.9%/KCL 20 MEQ/1,000 ML INFUS.BAG IV SCH (06:12)
[2021-03-21 07:16] LABS: BASO % 1.1 % (0-2.0); EOS % 1.2 % (0-4.5); HEMATOCRIT 20.9 % (32.4-45.2); HEMOGLOBIN 7.2 GM/dL (10.7-15.3); LYMPH % 20.6 % (8-40); MCH 29.5 pg (25.7-33.7); MCHC 34.5 g/dl (32.0-36.0); MEAN CELL VOLUME 85.3 fl (80-96); MEAN PLT VOLUME 8.3 fl (7.5-11.1); MONO % 9.3 % (3.8-10.2); NEUT % 67.8 % (42.8-82.8); PLATELET COUNT 235 10^3/uL (134-434); RBC 2.45 M/mm3 (3.60-5.2); RDW 16.3 % (11.6-15.6)
[2021-03-21 07:39] LABS: BLOOD UREA NITROGEN 18.4 mg/dL (7-18); CALCIUM 8.1 mg/dL (8.5-10.1)
[2021-03-21 07:44] LABS: BILIRUBIN,TOTAL 0.8 mg/dL (0.2-1); TOT PROT 5.9 g/dl (6.4-8.2)
[2021-03-21 08:01] LABS: ALBUMIN 2.7 g/dl (3.4-5.0)
[2021-03-21] MEDS ORDERED: cefTRIAXone SODIUM 1 GM VIAL ONE (09:56)
[2021-03-21] MEDS ORDERED: DEXTROSE 5%-WATER - 50 ML IVPB ONE (09:57)
[2021-03-21] MEDS: POTASSIUM CHLORIDE TABS 20 MEQ TABLET.ER (FP) PO SCH (10:14)
[2021-03-21] MEDS: CEFTRIAXONE 1 GM in DEXTROSE 5%-WATER - 50 ML IVPB SCH (10:14)
[2021-03-21] MEDS: METOPROLOL TARTRATE 50 MG TABLET (FP) PO SCH ×2 (10:43→21:09)
[2021-03-21] MEDS: NIFEdipine E.R 60 MG TABLET PO SCH (10:44)
[2021-03-21] MEDS: hydrALAZINE HCL 50 MG TABLET (FP) PO SCH ×2 (10:50→21:07)
[2021-03-21] MEDS ORDERED: PT OWN MED DRAWER 7, Y5N ONE (16:23)
[2021-03-21] MEDS: ACETAMINOPHEN 325 MG TABLET (FP) PO PRN ×2 (18:29→21:41)
[2021-03-21] MEDS ORDERED: IRON SUCROSE INJECTION 200 MG in SODIUM CHLORIDE 90 ML IVPB ONE (20:00)
[2021-03-22] MEDS: SODIUM CHLORIDE 0.9%/KCL 20 MEQ/1,000 ML INFUS.BAG IV SCH ×2 (06:09→13:54)
[2021-03-22 08:10] LABS: HEMATOCRIT 27.7 % (32.4-45.2); HEMOGLOBIN 9.5 GM/dL (10.7-15.3); MCH 29.4 pg (25.7-33.7); MCHC 34.4 g/dl (32.0-36.0); MEAN CELL VOLUME 85.5 fl (80-96); MEAN PLT VOLUME 8.6 fl (7.5-11.1); PLATELET COUNT 251 10^3/uL (134-434); RBC 3.24 M/mm3 (3.60-5.2); RDW 16.2 % (11.6-15.6); WHITE BLOOD COUNT 5.6 K/mm3 (4.0-10.0)
[2021-03-22 08:44] LABS: ALBUMIN 3.1 g/dl (3.4-5.0); CALCIUM 8.6 mg/dL (8.5-10.1)
[2021-03-22 08:45] LABS: BLOOD UREA NITROGEN 13.4 mg/dL (7-18)
[2021-03-22 08:47] LABS: TOT PROT 6.5 g/dl (6.4-8.2)
[2021-03-22 08:50] LABS: BILIRUBIN,TOTAL 0.4 mg/dL (0.2-1)
[2021-03-22] MEDS ORDERED: DEXTROSE 5%-WATER - 50 ML IVPB ONE (10:02)
[2021-03-22] MEDS ORDERED: cefTRIAXone SODIUM 1 GM VIAL ONE (10:02)
[2021-03-22] MEDS: CEFTRIAXONE 1 GM in DEXTROSE 5%-WATER - 50 ML IVPB SCH (10:02)
[2021-03-22] MEDS: hydrALAZINE HCL 50 MG TABLET (FP) PO SCH ×2 (10:03→22:08)
[2021-03-22] MEDS: POTASSIUM CHLORIDE TABS 20 MEQ TABLET.ER (FP) PO SCH (10:03)
[2021-03-22] MEDS: NIFEdipine E.R 60 MG TABLET PO SCH (10:13)
[2021-03-22] MEDS: METOPROLOL TARTRATE 50 MG TABLET (FP) PO SCH ×2 (10:13→22:08)
[2021-03-22] MEDS ORDERED: PT OWN MED DRAWER 7, Y5N ONE (12:48)
[2021-03-22] MEDS ORDERED: IRON SUCROSE INJECTION 200 MG in SODIUM CHLORIDE 90 ML IVPB ONE (14:00)
[2021-03-22] MEDS: ACETAMINOPHEN 325 MG TABLET (FP) PO PRN (22:09)
[2021-03-23] MEDS: SODIUM CHLORIDE 0.9%/KCL 20 MEQ/1,000 ML INFUS.BAG IV SCH (02:48)
[2021-03-23 08:26] LABS: MCH 29.6 pg (25.7-33.7); MCHC 34.6 g/dl (32.0-36.0); MEAN CELL VOLUME 85.6 fl (80-96); MEAN PLT VOLUME 8.3 fl (7.5-11.1); PLATELET COUNT 244 10^3/uL (134-434); RBC 3.03 M/mm3 (3.60-5.2); RDW 17.4 % (11.6-15.6)
[2021-03-23] MEDS ORDERED: cefTRIAXone SODIUM 1 GM VIAL ONE (08:36)
[2021-03-23] MEDS ORDERED: DEXTROSE 5%-WATER - 50 ML IVPB ONE (08:36)
[2021-03-23] MEDS: CEFTRIAXONE 1 GM in DEXTROSE 5%-WATER - 50 ML IVPB SCH (09:05)
[2021-03-23] MEDS: hydrALAZINE HCL 50 MG TABLET (FP) PO SCH ×2 (09:06→21:52)
[2021-03-23] MEDS: METOPROLOL TARTRATE 50 MG TABLET (FP) PO SCH ×2 (09:06→21:52)
[2021-03-23] MEDS: NIFEdipine E.R 60 MG TABLET PO SCH (09:06)
[2021-03-23] MEDS: POTASSIUM CHLORIDE TABS 20 MEQ TABLET.ER (FP) PO SCH (09:08)
[2021-03-23] MEDS ORDERED: PT OWN MED DRAWER 7, Y5N ONE (15:11)
[2021-03-23] MEDS: ACETAMINOPHEN 325 MG TABLET (FP) PO PRN (23:46)
[2021-03-24 08:08] LABS: HEMOGLOBIN 8.3 GM/dL (10.7-15.3); MCH 29.5 pg (25.7-33.7); MCHC 34.5 g/dl (32.0-36.0); MEAN CELL VOLUME 85.7 fl (80-96); MEAN PLT VOLUME 8.7 fl (7.5-11.1); PLATELET COUNT 235 10^3/uL (134-434); RDW 16.9 % (11.6-15.6); WHITE BLOOD COUNT 5.8 K/mm3 (4.0-10.0)
[2021-03-24] MEDS: NIFEdipine E.R 60 MG TABLET PO SCH (09:30)
[2021-03-24] MEDS: POTASSIUM CHLORIDE TABS 20 MEQ TABLET.ER (FP) PO SCH (09:30)
[2021-03-24] MEDS: METOPROLOL TARTRATE 50 MG TABLET (FP) PO SCH ×2 (09:30→21:25)
[2021-03-24] MEDS: hydrALAZINE HCL 50 MG TABLET (FP) PO SCH ×2 (09:36→21:25)
[2021-03-25 06:38] VITALS: TEMP 98.5
[2021-03-25 07:49] LABS: BASO % 1.4 % (0-2.0); HEMATOCRIT 24.9 % (32.4-45.2); HEMOGLOBIN 8.5 GM/dL (10.7-15.3); LYMPH % 19.3 % (8-40); MCH 29.9 pg (25.7-33.7); MCHC 34.2 g/dl (32.0-36.0); MEAN CELL VOLUME 87.5 fl (80-96); MEAN PLT VOLUME 8.6 fl (7.5-11.1); MONO % 8.2 % (3.8-10.2); NEUT % 69.1 % (42.8-82.8); PLATELET COUNT 255 10^3/uL (134-434); RBC 2.85 M/mm3 (3.60-5.2); RDW 17.1 % (11.6-15.6); WHITE BLOOD COUNT 5.7 K/mm3 (4.0-10.0)
[2021-03-25] MEDS ORDERED: PT OWN MED DRAWER 7, Y5N ONE (09:49)
[2021-03-25] MEDS: hydrALAZINE HCL 50 MG TABLET (FP) PO SCH (09:52)
[2021-03-25] MEDS: NIFEdipine E.R 60 MG TABLET PO SCH (09:52)
[2021-03-25] MEDS: METOPROLOL TARTRATE 50 MG TABLET (FP) PO SCH (09:52)
[2021-03-25] MEDS: POTASSIUM CHLORIDE TABS 20 MEQ TABLET.ER (FP) PO SCH (09:52)
[2021-03-25 10:07] VITALS: BP 167/86; PULSE 63
== END 2021-03-25 10:20 | disposition home or self-care (01) | DRG 812 ==
LOC: JER 03:10 → OBSVTOIN 14:28 → JERBED 14:28 → INTOOBSV 14:28 → J7W 15:57
PROVIDERS: ADMIT Internal Medicine; ATTEND Internal Medicine
PROC: 30233N1 Transfusion of Nonautologous Red Blood Cells into Peripheral Vein, Percutaneous Approach (ICD-10-PCS; principal; 2021-03-18)
DX: D50.9 Iron deficiency anemia, unspecified (principal); N39.0 Urinary tract infection, site not specified; N93.9 Abnormal uterine and vaginal bleeding, unspecified; I10 Essential (primary) hypertension; D25.1 Intramural leiomyoma of uterus; N83.201 Unspecified ovarian cyst, right side; I80.8 Phlebitis and thrombophlebitis of other sites
CPT/HCPCS: 36415; 36430; 71045-TC-FY; 71046-TC-FY; 76830-TC; 80048; 80053; 81003; 82962; 84484; 84703; 85025; 85027; 85610; 85730; 86850; 86900; 86901; 86922; 87040; 87086; 93005; 93010; 93971; 99285-25; C9803; J1756; P9058; U0003; U0005

== ENCOUNTER 2021-05-25 01:39 | Emergency (ER) | payer BC ==
[2021-05-25 02:03] VITALS: BMI 25.0
[2021-05-25 03:53] LABS: BASO % 1.1 % (0-2.0); EOS % 1.6 % (0-4.5); HEMATOCRIT 32.9 % (32.4-45.2); HEMOGLOBIN 10.9 GM/dL (10.7-15.3); LYMPH % 16.4 % (8-40); MCH 28.2 pg (25.7-33.7); MCHC 33.3 g/dl (32.0-36.0); MEAN CELL VOLUME 84.8 fl (80-96); MEAN PLT VOLUME 9.5 fl (7.5-11.1); NEUT % 70.9 % (42.8-82.8); PLATELET COUNT 215 10^3/uL (134-434); RBC 3.88 M/mm3 (3.60-5.2); RDW 15.7 % (11.6-15.6); WHITE BLOOD COUNT 7.4 K/mm3 (4.0-10.0)
[2021-05-25 04:07] LABS: INR 1.16 (0.83-1.09); PROTHROMBIN TIME (PATIENT) 13.6 SEC (9.7-13.0)
[2021-05-25 04:15] LABS: CALCIUM 8.3 mg/dL (8.5-10.1)
[2021-05-25 04:17] LABS: ANION GAP 6 MMOL/L (8-16); BLOOD UREA NITROGEN 13.3 mg/dL (7-18); CHLORIDE 110 mmol/L (98-107); CO2 24 mmol/L (21-32); GLUCOSE,RANDOM 94 mg/dL (74-106); SODIUM 140 mmol/L (136-145)
[2021-05-25 04:20] LABS: CREATININE 0.9 mg/dL (0.55-1.3); SGOT/AST 23 U/L (15-37); SGPT/ALT 24 U/L (13-61)
[2021-05-25 04:21] LABS: ALK PHOS 97 U/L (45-117); BILIRUBIN,TOTAL 0.2 mg/dL (0.2-1); TOT PROT 6.7 g/dl (6.4-8.2)
[2021-05-25 07:39] VITALS: TEMP 98.2
[2021-05-25 09:15] VITALS: BP 113/96; PULSE 74
== END 2021-05-25 09:18 | disposition home or self-care (01) ==
LOC: JER 01:39
DX: R00.2 Palpitations (principal); R07.9 Chest pain, unspecified
CPT/HCPCS: 36415; 71045-TC-FY; 80053; 82550; 84443; 84484; 85025; 85610; 85730; 86850; 86900; 86901; 93005; 93010; 99285-25; C9803; U0003; U0005

== ENCOUNTER 2022-02-23 01:17 | Inpatient (IN) | payer BC, OTHER ==
[2022-02-23] MEDS ORDERED: ASPIRIN 81 MG CHEWABLE TABLETS PO ONE ×2 (02:22→05:10)
[2022-02-23] MEDS ORDERED: ACETAMINOPHEN 500 MG TABLET (FP) PO ONE (02:33)
[2022-02-23] MEDS ORDERED: METOPROLOL TARTRATE 50 MG TABLET (FP) PO ONE ×2 (02:33→19:00)
[2022-02-23] MEDS ORDERED: ACETAMINOPHEN 325 MG TABLET (FP) ONE (02:35)
[2022-02-23] MEDS ORDERED: METOPROLOL TARTRATE 50 MG TABLET (FP) ONE (02:36)
[2022-02-23 03:00] LABS: BASO % 2.5 % (0-2.0); HEMATOCRIT 27.2 % (32.4-45.2); HEMOGLOBIN 8.8 GM/dL (10.7-15.3); LYMPH % 32.6 % (8-40); MCH 22.6 pg (25.7-33.7); MCHC 32.2 g/dl (32.0-36.0); MEAN CELL VOLUME 70.4 fl (80-96); MEAN PLT VOLUME 9.6 fl (7.5-11.1); MONO % 10.7 % (3.8-10.2); NEUT % 51.2 % (42.8-82.8); PLATELET COUNT 281 10^3/uL (134-434); RBC 3.87 M/mm3 (3.60-5.2); RDW 19.2 % (11.6-15.6); WHITE BLOOD COUNT 5.4 K/mm3 (4.0-10.0)
[2022-02-23 03:20] LABS: CALCIUM 8.8 mg/dL (8.5-10.1)
[2022-02-23 03:21] LABS: ALBUMIN 3.7 g/dl (3.4-5.0); BLOOD UREA NITROGEN 14.5 mg/dL (7-18)
[2022-02-23 03:24] LABS: CREATININE 0.9 mg/dL (0.55-1.3)
[2022-02-23 03:26] LABS: BILIRUBIN,TOTAL 0.2 mg/dL (0.2-1); TOT PROT 7.6 g/dl (6.4-8.2)
[2022-02-23] MEDS ORDERED: hydrALAZINE HCL 50 MG TABLET (FP) PO ONE ×2 (03:44→04:59)
[2022-02-23] MEDS ORDERED: hydrALAZINE HCL 25 MG TABLET (FP) ONE ×2 (03:46→06:07)
[2022-02-23] MEDS ORDERED: IBUPROFEN 600 MG TABLET (FP) PO ONE ×2 (03:48→03:49)
[2022-02-23] MEDS ORDERED: ASPIRIN 81 MG CHEWABLE TABLETS ONE (06:07)
[2022-02-23 09:22] VITALS: BMI 25.3
[2022-02-23] MEDS: ENOXAPARIN NA (PORCINE) 40 MG/0.4 ML DISP.SYRIN SQ SCH (09:53)
[2022-02-23] MEDS: LABETALOL HCL 200 MG TABLET (FP) PO SCH ×2 (09:53→22:00)
[2022-02-23] MEDS: amLODIPine BESYLATE 10 MG TABLET (FP) PO SCH (09:54)
[2022-02-23] MEDS: ASPIRIN 81 MG CHEWABLE TABLETS PO SCH (09:54)
[2022-02-24] MEDS ORDERED: ACETAMINOPHEN 325 MG TABLET (FP) PO PRN (03:26)
[2022-02-24] MEDS: LABETALOL HCL 200 MG TABLET (FP) PO SCH (09:43)
[2022-02-24] MEDS: ENOXAPARIN NA (PORCINE) 40 MG/0.4 ML DISP.SYRIN SQ SCH (09:43)
[2022-02-24] MEDS: amLODIPine BESYLATE 10 MG TABLET (FP) PO SCH ×2 (09:43→14:26)
[2022-02-24] MEDS: ASPIRIN 81 MG CHEWABLE TABLETS PO SCH (09:43)
[2022-02-24 12:23] LABS: HEMOGLOBIN 8.9 G/dL (10.7-15.3); MCH 23.8 pg (25.7-33.7); MCHC 32.9 g/dl (32.0-36.0); MEAN CELL VOLUME 72.7 fl (80-96); MEAN PLT VOLUME 10.4 fl (7.5-11.1); PLATELET COUNT 297.9 10^3/uL (134-434); RBC 3.72 10^6/uL (3.60-5.2); RDW 21.6 % (11.6-15.6); WHITE BLOOD COUNT 5.3 10^3/uL (4.0-10.8)
[2022-02-24 12:33] LABS: PLATELET ESTIMATE ADEQUATE
[2022-02-24 12:34] LABS: ALBUMIN 3.5 g/dl (3.4-5.0); BILIRUBIN,TOTAL 0.2 mg/dl (0.2-1); CALCIUM 9.1 mg/dl (8.5-10); CREATININE 0.9 mg/dl (0.55-1.3); MAGNESIUM 1.9 mg/dL (1.8-2.4); TOT PROT 6.8 g/dl (6.4-8.2)
[2022-02-24 14:07] VITALS: BP 159/65; PULSE 67; RESP 17; TEMP 98.5
== END 2022-02-24 17:57 | disposition left against medical advice (07) | DRG 198 ==
LOC: FER 01:17 → FM/S 05:18 → UNDOADMIN 05:18 → FM/S 02-24 12:19
PROVIDERS: ADMIT Internal Medicine; ATTEND Nurse Practitioner Acute Care
DX: R07.89 Other chest pain (principal); I10 Essential (primary) hypertension; D64.9 Anemia, unspecified; I25.10 Atherosclerotic heart disease of native coronary artery without angina pectoris; R60.0 Localized edema; Z53.29 Procedure and treatment not carried out because of patient's decision for other reasons
CPT/HCPCS: 0241U-QW; 36415; 71045-TC-FY; 80053; 83735; 83880; 84443; 84484; 85025; 93005; 93306-TC; 99285-25

== ENCOUNTER 2022-08-02 14:34 | Observation (INO) | payer OTHER ==
[2022-08-02] MEDS ORDERED: NITROGLYCERIN 2% OINTMENT - 1GM PACKET TD ONE ×2 (16:22→17:29)
[2022-08-02 17:39] LABS: BASO % 1.1 % (0-2.0); EOS % 3.8 % (0-4.5); HEMATOCRIT 34.6 % (32.4-45.2); HEMOGLOBIN 11.1 GM/dL (10.7-15.3); LYMPH % 27.2 % (8-40); MCH 25.6 pg (25.7-33.7); MEAN PLT VOLUME 9.6 fl (7.5-11.1); MONO % 11.7 % (3.8-10.2); NEUT % 56.2 % (42.8-82.8); PLATELET COUNT 288 10^3/uL (134-434); RBC 4.32 M/mm3 (3.60-5.2); RDW 21.7 % (11.6-15.6); WHITE BLOOD COUNT 5.5 K/mm3 (4.0-10.0)
[2022-08-02] MEDS ORDERED: ACETAMINOPHEN 325 MG TABLET (FP) PO ONE (17:44)
[2022-08-02] MEDS ORDERED: LIDOCAINE 5% TOPICAL PATCH TP ONE (17:44)
[2022-08-02 17:47] LABS: CALCIUM 9.2 mg/dL (8.5-10.1)
[2022-08-02 17:48] LABS: BLOOD UREA NITROGEN 10.9 mg/dL (7-18)
[2022-08-02 17:51] LABS: CREATININE 0.9 mg/dL (0.55-1.3)
[2022-08-02 17:52] LABS: BILIRUBIN,TOTAL 0.4 mg/dL (0.2-1); TOT PROT 7.8 g/dl (6.4-8.2)
[2022-08-02 18:25] LABS: ANISOCYTOSIS 2+; MACROCYTOSIS 1+; OVALOCYTE 1+
[2022-08-02] MEDS ORDERED: ACETAMINOPHEN 325 MG TABLET (FP) ONE (18:39)
[2022-08-02] MEDS ORDERED: NIFEdipine E.R. 30 MG TABLET PO ONE (18:39)
[2022-08-02] MEDS ORDERED: LIDOCAINE 5% TOPICAL PATCH ONE (18:40)
[2022-08-02] MEDS ORDERED: NIFEdipine E.R 60 MG TABLET PO ONE (18:40)
[2022-08-02] MEDS ORDERED: NIFEdipine E.R. 90 MG TABLET PO ONE (19:00)
[2022-08-02] MEDS ORDERED: LABETALOL HCL 200 MG TABLET (FP) PO ONE (19:03)
[2022-08-02] MEDS ORDERED: LABETALOL HCL 5 MG/1 ML (100MG/20 ML VIAL) IVPUSH ONE (19:26)
[2022-08-02] MEDS ORDERED: LABETALOL HCL 100 MG TABLET (FP) ONE (19:27)
[2022-08-02] MEDS ORDERED: ENALAPRIL MALEATE 10 MG TABLET PO ONE (21:11)
[2022-08-02] MEDS ORDERED: ENALAPRIL MALEATE 5 MG TABLET ONE ×2 (21:22→21:25)
[2022-08-02] MEDS ORDERED: LIDOCAINE PATCH REMOVAL MC SCH (22:00)
[2022-08-02] MEDS ORDERED: DOCUSATE SODIUM 100 MG CAPSULE (FP) PO PRN (22:32)
[2022-08-03 01:04] LABS: MAGNESIUM 2.1 mg/dL (1.8-2.4)
[2022-08-03] MEDS ORDERED: LIDOCAINE PATCH REMOVAL MC SCH (06:00)
[2022-08-03 09:15] LABS: CALCIUM 8.9 mg/dL (8.5-10.1)
[2022-08-03 09:16] LABS: BLOOD UREA NITROGEN 10.1 mg/dL (7-18)
[2022-08-03 09:18] LABS: CREATININE 0.9 mg/dL (0.55-1.3)
[2022-08-03] MEDS ORDERED: LABETALOL HCL 200 MG TABLET (FP) PO SCH (12:13)
[2022-08-03] MEDS ORDERED: NIFEdipine E.R 60 MG TABLET PO ONE (12:19)
[2022-08-03] MEDS ORDERED: LABETALOL HCL 100 MG TABLET (FP) ONE (12:38)
[2022-08-03] MEDS ORDERED: ACETAMINOPHEN 325 MG TABLET (FP) ONE (12:39)
[2022-08-03] MEDS: ACETAMINOPHEN 325 MG TABLET (FP) PO PRN ×2 (12:51→21:34)
[2022-08-03] MEDS: NIFEdipine E.R 60 MG TABLET PO SCH (12:52)
[2022-08-03] MEDS: LABETALOL HCL 200 MG TABLET (FP) PO SCH ×2 (13:10→21:32)
[2022-08-03] MEDS ORDERED: NIFEdipine E.R. 90 MG TABLET PO ONE (17:44)
[2022-08-04 00:19] VITALS: BMI 26.2
[2022-08-04] MEDS: LABETALOL HCL 200 MG TABLET (FP) PO SCH ×2 (06:03→13:14)
[2022-08-04] MEDS ORDERED: LIDOCAINE 5% TOPICAL PATCH TP ONE (06:10)
[2022-08-04] MEDS: NIFEdipine E.R 60 MG TABLET PO SCH (09:12)
[2022-08-04] MEDS ORDERED: ASPIRIN 81 MG CHEWABLE TABLETS PO SCH (10:00)
[2022-08-04] MEDS ORDERED: ENALAPRIL MALEATE 10 MG TABLET PO SCH (10:00)
[2022-08-04 10:06] LABS: URINE APPEARANCE CLEAR; URINE BILIRUBIN NEGATIVE (NEGATIVE); URINE COLOR YELLOW; URINE GLUCOSE (UA) NEGATIVE (NEGATIVE); URINE KETONE NEGATIVE (NEGATIVE); URINE LEUK ESTERASE NEGATIVE (NEGATIVE); URINE NITRITE NEGATIVE (NEGATIVE); URINE PROTEIN NEGATIVE (NEGATIVE); URINE UROBILINOGEN 0.2 mg/dL (0.2-1.0)
[2022-08-04 14:21] VITALS: BP 130/73; PULSE 61; RESP 20; TEMP 98.4
[2022-08-04 14:33] LABS: URIC ACID 3.9 mg/dL (2.6-7.2)
[2022-08-04] MEDS ORDERED: LIDOCAINE PATCH REMOVAL MC SCH (22:00)
== END 2022-08-04 16:09 | disposition home or self-care (01) ==
LOC: JER 14:34 → JERBED 21:13 → INTOOBSV 21:13 → J4W 08-03 19:38
PROVIDERS: ADMIT Internal Medicine; ATTEND Internal Medicine
PROC: 3E033GC Introduction of Other Therapeutic Substance into Peripheral Vein, Percutaneous Approach (ICD-10-PCS; principal; 2022-08-02)
DX: I16.1 Hypertensive emergency (principal); R22.43 Localized swelling, mass and lump, lower limb, bilateral; K59.00 Constipation, unspecified; R07.9 Chest pain, unspecified
CPT/HCPCS: 0241U-QW; 36415; 71046-TC-FY; 76775-TC; 80048; 80053; 81003; 83735; 84439; 84443; 84479; 84484; 84550; 85025; 93005; 93010; 96374; 99291; G0378

== ENCOUNTER 2022-08-10 12:19 | Emergency (ER) | payer OTHER ==
[2022-08-10 12:27] VITALS: BP 153/84; PULSE 64; RESP 18; TEMP 97.9; BMI 25.8
[2022-08-10] MEDS ORDERED: KETOROLAC TROMETHAMINE 30 MG/1 ML VIAL IM ONE (13:34)
[2022-08-10] MEDS ORDERED: KETOROLAC TROMETHAMINE 30 MG/1 ML VIAL ONE (13:39)
== END 2022-08-10 15:44 | disposition home or self-care (01) ==
LOC: JERFT 12:19
PROC: 3E023GC Introduction of Other Therapeutic Substance into Muscle, Percutaneous Approach (ICD-10-PCS; principal; 2022-08-10)
DX: M79.675 Pain in left toe(s) (principal)
CPT/HCPCS: 73660-TC-LT-FY; 99284-25

== ENCOUNTER 2022-11-23 15:27 | Emergency (ER) | payer OTHER ==
[2022-11-23 15:32] VITALS: RESP 18; TEMP 98.4; BMI 27.4
[2022-11-23] MEDS ORDERED: ACETAMINOPHEN 1000 MG/100 ML BAG IVPB ONE (16:08)
[2022-11-23] MEDS ORDERED: SODIUM CHLORIDE 0.9% 1000 ML INFUS.BAG IV ONE (16:08)
[2022-11-23] MEDS ORDERED: METOCLOPRAMIDE HCL INJECTION 10 MG/2 ML VIAL IVPB ONE (16:08)
[2022-11-23] MEDS ORDERED: METOCLOPRAMIDE HCL INJECTION 10 MG/2 ML VIAL ONE (16:23)
[2022-11-23] MEDS ORDERED: ACETAMINOPHEN INJECTION 100 ML IVPB ONE (16:23)
[2022-11-23] MEDS ORDERED: DEXAMETHASONE SOD PHOSPHATE 4 MG/1 ML VIAL IVPUSH ONE (18:06)
[2022-11-23] MEDS ORDERED: DEXAMETHASONE SOD PHOSPHATE 4 MG/1 ML VIAL ONE (18:06)
[2022-11-23 18:24] VITALS: BP 156/89; PULSE 87
== END 2022-11-23 18:30 | disposition home or self-care (01) ==
LOC: FER 15:27
PROC: 3E033NZ Introduction of Analgesics, Hypnotics, Sedatives into Peripheral Vein, Percutaneous Approach (ICD-10-PCS; principal; 2022-11-23)
PROC: 3E033GC Introduction of Other Therapeutic Substance into Peripheral Vein, Percutaneous Approach (ICD-10-PCS; 2022-11-23)
PROC: 3E033GC Introduction of Other Therapeutic Substance into Peripheral Vein, Percutaneous Approach (ICD-10-PCS; 2022-11-23)
PROC: 3E033GC Introduction of Other Therapeutic Substance into Peripheral Vein, Percutaneous Approach (ICD-10-PCS; 2022-11-23)
DX: R51.9 Headache, unspecified (principal); Z20.822 Contact with and (suspected) exposure to COVID-19
CPT/HCPCS: 0241U-QW; 70450-TC; 99284-25

== ENCOUNTER 2024-10-04 15:04 | Inpatient (IN) | payer OTHER ==
[2024-10-04 18:56] LABS: BASO % 0.9 % (0-2.0); EOS % 7.2 % (0-4.5); HEMATOCRIT 36.7 % (32.4-45.2); LYMPH % 22.9 % (8-40); MCH 27.4 pg (25.7-33.7); MCHC 32.8 g/dl (32.0-36.0); MEAN CELL VOLUME 83.6 fl (80-96); MEAN PLT VOLUME 9.7 fl (7.5-11.1); MONO % 9.7 % (3.8-10.2); NEUT % 59.3 % (42.8-82.8); PLATELET COUNT 238 10^3/uL (134-434); RBC 4.39 M/mm3 (3.60-5.2); RDW 15.8 % (11.6-15.6); WHITE BLOOD COUNT 6.7 K/mm3 (4.0-10.0)
[2024-10-04 19:52] LABS: CALCIUM 10.3 mg/dL (8.5-10.1)
[2024-10-04 19:55] LABS: CREATININE 0.9 mg/dL (0.55-1.3)
[2024-10-04 19:56] LABS: BILIRUBIN,TOTAL 0.3 mg/dL (0.2-1)
[2024-10-04 19:57] LABS: POTASSIUM 3.7 mmol/L (3.5-5.1)
[2024-10-04 19:59] LABS: TOT PROT 7.9 g/dl (6.4-8.2)
[2024-10-04 20:10] LABS: HIV INTERPRETATION NEGATIVE (NEGATIVE)
[2024-10-04] MEDS: ACYCLOVIR INJECTION 800 MG in DEXTROSE 5%-WATER - 100 ML IVPB ONE (20:34)
[2024-10-04] MEDS ORDERED: ACETAMINOPHEN 500 MG TABLET (FP) PO PRN (21:58)
[2024-10-04] MEDS ORDERED: DOCUSATE SODIUM 100 MG CAPSULE (FP) PO PRN (21:58)
[2024-10-05 00:46] VITALS: RESP 18; BMI 28.8
[2024-10-05] MEDS: ACYCLOVIR INJECTION 800 MG in DEXTROSE 5%-WATER - 250 ML IVPB SCH (06:35)
[2024-10-05] MEDS: ENOXAPARIN NA (PORCINE) 40 MG/0.4 ML DISP.SYRIN SQ SCH (09:20)
[2024-10-05 09:30] VITALS: BP 131/75; PULSE 59; TEMP 97.9
[2024-10-05] MEDS ORDERED: DOCUSATE SODIUM 100 MG CAPSULE (FP) PO SCH (22:00)
== END 2024-10-05 14:49 | disposition home or self-care (01) | DRG 866 ==
LOC: JER 15:04 → JERBED 20:28 → J6S 23:52
PROVIDERS: ADMIT Internal Medicine; ATTEND Internal Medicine
DX: B02.7 Disseminated zoster (principal); I10 Essential (primary) hypertension; K59.00 Constipation, unspecified; E04.9 Nontoxic goiter, unspecified
CPT/HCPCS: 36415; 80053; 85025; 87389; 99285-25